=== PATIENT | male | born 1945 | race Caucasian/White ===

== ENCOUNTER 2023-10-18 16:07 | Observation (INO) ==
[2023-10-18] MEDS ORDERED: SODIUM CHLORIDE 0.9% 1,000 ML IV SCH (17:30)
[2023-10-18 17:36] LABS: Basophils # (auto) 0.05 K/uL (0.00-0.20); Basophils % (auto) 0.4 %; Hematocrit (blood only) 46.3 % (42.0-52.0); Hemoglobin 15.3 g/dl (14.0-18.0); Immature Granulocytes # (auto) 0.13 K/uL (0.01-0.20); Immature Granulocytes % (auto) 0.9 %; Lymphocytes # (auto) 1.23 K/uL (1.20-3.40); Mean Corpuscular Hemoglobin 29.1 pg (25.0-34.0); Mean Corpuscular Volume 88.2 fL (80.0-100.0); Mean Platelet Volume 11.1 fL (9.4-12.4); Monocytes % (auto) 10.9 %; Neutrophils % (auto) 78.8 %; Platelet Count 193 K/uL (130-400); RDW Coefficient of Variation 13.5 % (11.5-14.5); RDW Standard Deviation 43.8 fL (36.4-46.3); Red Blood Count 5.25 M/uL (4.70-6.10); White Blood Count 13.71 K/ul (4.8-10.8)
[2023-10-18 17:44] LABS: Albumin Globulin Ratio 1.3 (0.9-2); BUN Creatinine Ratio 15.5 (10-20); Bilirubin,Total 0.8 mg/dl (0.2-1.0); Calcium 9.3 mg/dl (8.6-10.3); Est GFR (African American) 38.8 ml/min; Est GFR (Non-African American) 33.4 ml/min; Globulin 3.1 gm/dl (2.5-4.0); Potassium 4.2 mmol/L (3.5-5.1); Total Protein 7.1 gm/dl (6.0-8.3)
--- NOTE | 2023-10-18 17:49 | Emergency Department Note ---
Impression & Plan Influenza A, Generalized weakness, Ambulatory dysfunction, Non-ST elevation CO (NSTEMI) ED Provider Note HISTORY OF PRESENT ILLNESS: Patient is a 78-year-old male presenting with generalized weakness. Patient lives home alone, but his adult children have been living with him since he was diagnosed with influenza A 72 hours ago. They report that the patient started Tamiflu and is taken 3 pills today. States that he presented to [facility] 3 days ago and was diagnosed with influenza given IV fluids and was feeling better so he was discharged home. However, he has had a significant decline in the last 72 hours. Children reports that the patient has been so weak that he had to lower himself to the ground. Denies striking his head or loss of consciousness. Denies any chest pain or significant shortness of breath. Denies any abdominal pain, nausea or vomiting. He is complaining of some low back pain which has been worse in the last 72 hours. ROS: as above PHYSICAL EXAM: Constitutional: Patient appears in no acute distress. HENT: Head: Normocephalic and atraumatic. Eyes: EOMI, PERRL Mouth/Throat: Mucous membranes moist. Neck: Trachea midline. Neck supple. Cardiovascular: RRR, No murmurs, rubs or gallops. Intact distal pulses. Pulmonary/Chest: No respiratory distress. Breath sounds clear and equal bilaterally. No wheezes or rales. Abdominal: Abdomen soft, no tenderness, rebound or guarding. Musculoskeletal: No edema, tenderness or deformity noted. Skin: Warm and dry. No rash, erythema, pallor or cyanosis Psychiatric: Appropriate mood and affect for situation. Neurological: Alert and keenly responsive. CN II-XII grossly intact, moving all extremities equally and fully. MDM: - Vitals signs showed tachycardia. - History obtained via patient. Patient presents with generalized weakness. Patient lives alone but his adult children have been living with him since he was diagnosed with influenza A 72 hours ago. They report he started Tamiflu and is taken to 3 pills today. She presented to [facility] 3 days ago and was diagnosed with influenza and given fluids and was feeling better so was discharged home. However, family reports in the last 72 hours the patient has had a significant decline. Has been very weak and having difficulties getting around at his house. He reportedly lowered himself to the ground secondary to weakness. Denies striking his head or loss of consciousness. - Chronic conditions affecting care: HTN; HLD - Differential diagnoses include, but are not limited to: viral syndrome; pneumonia; UTI; ACS; intracranial hemorrhage; CVA - Order placed for continuous cardiac monitoring. At this time, monitor showed rate of 95 bpm with normal sinus rhythm, per my interpretation. - External medical records reviewed. EMS run sheet was reviewed. Patient was initially hypotensive on their arrival to 90s over 50s. He was given 500 cc of fluid prehospital - EKG interpreted by myself showed normal sinus rhythm. Rate 99 bpm. QTc 464. No acute ischemic changes. Noted to have an incomplete right bundle branch block. - Laboratory workup interpreted by myself showed slight leukocytosis (WBC 13.71); normal lactate; elevated creatinine (1.87 - unknown baseline); stable electrolytes; elevated troponin (24.2); normal procalcitonin; normal TSH - UA negative for infection - CXR negative for pneumonia, per my interpretation - CT head wo contrast negative for acute pathology - CT lumbar spine negative for fracture. Noted to have nonobstructing stones in right UPJ. - Patient given 1L NS. - Discussion was had with family day carer about patient's case and need for admission - Hospitalist consulted for admission - [facility] ASSESSMENT AND PLAN: Diagnosis: influenza A; generalized weakness; ambulatory dysfunction; NSTEMI Plan: admit Past Med/Surg History Medical History (Updated 10/18/23 @ 20:12 by Honey Foley MD) Hyperlipidemia Hypertension Social History Smoking Status: Never smoker Feels Safe at Home: Yes Allergies Allergies Allergy/AdvReac Type Severity Reaction Status Date / Time No Known Allergies Allergy Verified 10/18/23 18:04 Home Meds Home Medications Medication Instructions Recorded Confirmed amlodipine 2.5 mg tablet 0 mg PO DAILY 10/18/23 10/18/23 benazepril 10 mg tablet 0 mg PO DAILY 10/18/23 10/18/23 oseltamivir 75 mg capsule (Tamiflu) 0 mg PO DIRECTED 10/18/23 10/18/23 pravastatin 10 mg tablet 0 mg PO DAILY 10/18/23 10/18/23 Results & Data (ED) Vital Signs Vital Signs - 24 hr 10/18/23 15:47 10/18/23 16:19 10/18/23 16:20 Temperature 37.1 C Temperature Source Oral Pulse Rate 97 H 97 H 97 H Pulse Rate [Apical] Pulse Rate from SpO2 Sensor Respiratory Rate 15 20 Respiratory Depth Blood Pressure 128/74 Blood Pressure [Right Arm] Blood Pressure Mean 92 Blood Pressure Mean [Right Arm] Pulse Oximetry 94 Oxygen Delivery Method Room Air Sepsis Recent Fever Within 48 Hours No Sepsis New/Unexplained Change in Mental Status No Sepsis Action Taken by Nursing No Action Required 10/18/23 16:22 10/18/23 17:00 10/18/23 17:21 Temperature 37.1 C Temperature Source Oral Pulse Rate 100 H Pulse Rate [Apical] 98 H Pulse Rate from SpO2 Sensor 99 H Respiratory Rate 13 21 Respiratory Depth Normal Blood Pressure Blood Pressure [Right Arm] 128/74 Blood Pressure Mean Blood Pressure Mean [Right Arm] 92 Pulse Oximetry 95 93 93 Oxygen Delivery Method Room Air Room Air Sepsis Recent Fever Within 48 Hours Sepsis New/Unexplained Change in Mental Status Sepsis Action Taken by Nursing 10/18/23 17:35 10/18/23 17:35 10/18/23 18:29 Temperature Temperature Source Pulse Rate 100 H 97 H Pulse Rate [Apical] Pulse Rate from SpO2 Sensor 100 H Respiratory Rate 21 14 Respiratory Depth Blood Pressure 115/69 Blood Pressure [Right Arm] Blood Pressure Mean 79 Blood Pressure Mean [Right Arm] Pulse Oximetry 93 Oxygen Delivery Method Sepsis Recent Fever Within 48 Hours Sepsis New/Unexplained Change in Mental Status Sepsis Action Taken by Nursing 10/18/23 18:32 10/18/23 18:32 10/18/23 19:00 Temperature Temperature Source Pulse Rate Pulse Rate [Apical] Pulse Rate from SpO2 Sensor 91 H Respiratory Rate 19 Respiratory Depth Blood Pressure 102/63 Blood Pressure [Right Arm] Blood Pressure Mean 76 Blood Pressure Mean [Right Arm] Pulse Oximetry 96 Oxygen Delivery Method Sepsis Recent Fever Within 48 Hours Sepsis New/Unexplained Change in Mental Status Sepsis Action Taken by Nursing 10/18/23 19:00 Temperature Temperature Source Pulse Rate Pulse Rate [Apical] Pulse Rate from SpO2 Sensor Respiratory Rate Respiratory Depth Blood Pressure 132/79 Blood Pressure [Right Arm] Blood Pressure Mean 95 Blood Pressure Mean [Right Arm] Pulse Oximetry Oxygen Delivery Method Sepsis Recent Fever Within 48 Hours Sepsis New/Unexplained Change in Mental Status Sepsis Action Taken by Nursing Laboratory Data 10/18/23 16:24 10/18/23 16:24 Lab Results 10/18/23 10/18/23 10/18/23 Range/Units 16:24 17:38 18:20 WBC 13.71 H (4.8-10.8) K/ul RBC 5.25 (4.70-6.10) M/uL Hgb 15.3 (14.0-18.0) g/dl Hct 46.3 (42.0-52.0) % MCV 88.2 (80.0-100.0) fL MCH 29.1 (25.0-34.0) pg MCHC 33.0 (32.0-36.0) g/dL RDW Std Deviation 43.8 (36.4-46.3) fL RDW Coeff of Yanet 13.5 (11.5-14.5) % Plt Count 193 (130-400) K/uL MPV 11.1 (9.4-12.4) fL Immature Gran % (Auto) 0.9 % Neut % (Auto) 78.8 % Lymph % (Auto) 9.0 % Antelope % (Auto) 10.9 % Eos % (Auto) 0.0 % Baso % (Auto) 0.4 % Neut # (Auto) 10.80 H (1.40-6.50) K/uL Lymph # (Auto) 1.23 (1.20-3.40) K/uL Antelope # (Auto) 1.50 H (0.11-0.59) K/uL Eos # (Auto) 0.00 (0.00-0.50) K/uL Baso # (Auto) 0.05 (0.00-0.20) K/uL Immature Gran # (Auto) 0.13 (0.01-0.20) K/uL Sodium 137 (136-145) mmol/L Potassium 4.2 (3.5-5.1) mmol/L Chloride 104 (98-107) mmol/L Carbon Dioxide 23 (21-32) mmol/L Anion Gap 10 (3-11) BUN 29 H (6-23) mg/dl Creatinine 1.87 H (0.6-1.4) mg/dl Est Cr Clr Drug Dosing 31.0 ml/min Est GFR ( Amer) 38.8 ml/min Est GFR (Non-Af Amer) 33.4 ml/min BUN/Creatinine Ratio 15.5 (10-20) Glucose 113 H (70-99(Fasting)) mg/dl Lactate 1.5 (0.4-2.0) mmol/L Calcium 9.3 (8.6-10.3) mg/dl Magnesium 2.0 (1.7-2.4) mg/dl Total Bilirubin 0.8 (0.2-1.0) mg/dl AST 42 H (13-39) U/L ALT 15 (7-52) U/L Alkaline Phosphatase 53 (34-104) U/L Troponin I High Sens 24.2 H (0-20) pg/ml Total Protein 7.1 (6.0-8.3) gm/dl Albumin 4.0 (3.4-5.0) gm/dl Globulin 3.1 (2.5-4.0) gm/dl Albumin/Globulin Ratio 1.3 (0.9-2) Procalcitonin 0.18 (0-0.5) ng/ml TSH 4.193 (0.300-4.500) uIu/ml Urine Color Urine Appearance (Clear) Urine pH (4.5-7.5) Ur Specific Wilcox (1.000-1.030) Urine Protein (Negative) Urine Glucose (UA) (Negative) Urine Ketones (Negative) Urine Blood (Negative) Urine Nitrite (Negative) Urine Bilirubin (Negative) Urine Urobilinogen (Negative) Ur Leukocyte Esterase (Negative) Urine WBC (Auto) (0-5) /hpf Urine RBC (Auto) (0-4) /hpf U Hyaline Cast (Auto) (0-5) /lpf U Epithel Cells (Auto) (0-5) /lpf Urine Bacteria (Auto) (Negative) Ur Renal Epithelial Cell (0-5) /lpf SARS-CoV-2 (PCR) NEGATIVE (Negative) 10/18/23 Range/Units Unknown WBC (4.8-10.8) K/ul RBC (4.70-6.10) M/uL Hgb (14.0-18.0) g/dl Hct (42.0-52.0) % MCV (80.0-100.0) fL MCH (25.0-34.0) pg MCHC (32.0-36.0) g/dL RDW Std Deviation (36.4-46.3) fL RDW Coeff of Yanet (11.5-14.5) % Plt Count (130-400) K/uL MPV (9.4-12.4) fL Immature Gran % (Auto) % Neut % (Auto) % Lymph % (Auto) % Antelope % (Auto) % Eos % (Auto) % Baso % (Auto) % Neut # (Auto) (1.40-6.50) K/uL Lymph # (Auto) (1.20-3.40) K/uL Antelope # (Auto) (0.11-0.59) K/uL Eos # (Auto) (0.00-0.50) K/uL Baso # (Auto) (0.00-0.20) K/uL Immature Gran # (Auto) (0.01-0.20) K/uL Sodium (136-145) mmol/L Potassium (3.5-5.1) mmol/L Chloride (98-107) mmol/L Carbon Dioxide (21-32) mmol/L Anion Gap (3-11) BUN (6-23) mg/dl Creatinine (0.6-1.4) mg/dl Est Cr Clr Drug Dosing ml/min Est GFR ( Amer) ml/min Est GFR (Non-Af Amer) ml/min BUN/Creatinine Ratio (10-20) Glucose (70-99(Fasting)) mg/dl Lactate (0.4-2.0) mmol/L Calcium (8.6-10.3) mg/dl Magnesium (1.7-2.4) mg/dl Total Bilirubin (0.2-1.0) mg/dl AST (13-39) U/L ALT (7-52) U/L Alkaline Phosphatase (34-104) U/L Troponin I High Sens (0-20) pg/ml Total Protein (6.0-8.3) gm/dl Albumin (3.4-5.0) gm/dl Globulin (2.5-4.0) gm/dl Albumin/Globulin Ratio (0.9-2) Procalcitonin (0-0.5) ng/ml TSH (0.300-4.500) uIu/ml Urine Color Yellow Urine Appearance Cloudy A (Clear) Urine pH 5.5 (4.5-7.5) Ur Specific Wilcox 1.018 (1.000-1.030) Urine Protein 1+ H (Negative) Urine Glucose (UA) Negative (Negative) Urine Ketones 1+ H (Negative) Urine Blood 2+ H (Negative) Urine Nitrite Negative (Negative) Urine Bilirubin Negative (Negative) Urine Urobilinogen Negative (Negative) Ur Leukocyte Esterase Negative (Negative) Urine WBC (Auto) 1-5 (0-5) /hpf Urine RBC (Auto) 0-4 (0-4) /hpf U Hyaline Cast (Auto) 1-5 (0-5) /lpf U Epithel Cells (Auto) >30 H (0-5) /lpf Urine Bacteria (Auto) Negative (Negative) Ur Renal Epithelial Cell 5-10 H (0-5) /lpf SARS-CoV-2 (PCR) (Negative) Administered Medications Discontinued Medications Sodium Chloride (Nss) 1,000 mls @ 999 mls/hr IV .[id number] ALFONZO Stop: 10/18/23 18:30 Last Infusion: 10/18/23 18:54 Dose: Infused Documented By: Admin: 10/18/23 17:35 Dose: 999 mls/hr Documented By: [facility] Imaging Data Radiologist's Impression: Chest X-Ray 10/18/23 17:21 XR chest 1V portable HISTORY: weakness COMPARISON: None. FINDINGS: There are low lung volumes. No pneumothorax. No focal lung consolidations to suggest a pneumonia. No evidence for pulmonary edema. The cardiac silhouette is normal in size. No acute fractures identified. IMPRESSION: No acute process. ACT 112: Negative or not required by law. Electronically signed by: Rell Rocha M.D. 10/18/2023 5:[address] 10/18/23 17:[address] DOSE: 1806.65 mGy.cm HISTORY: generalized weakness TECHNIQUE: Multiaxial CT images of the head were performed without the use of intravenous contrast. Automated exposure control was utilized for this study. A dose lowering technique was utilized adhering to the principles of ALARA. Comparison: None. Findings: Mild mucosal thickening within the left maxillary sinus. Opacified left frontal and left sphenoid sinuses. This is likely chronic. The mastoid air cells are clear. Artifact. The calvarium and skull base are intact. Old bilateral basal ganglia infarcts. There is no mass, hematoma, midline shift, or acute infarct. Atrophy and microvascular ischemic changes are noted. Impression: No acute infarct or intracranial hemorrhage. ACT 112: Negative or not required by law. Electronically signed by: Rell Rocha M.D. 10/18/2023 7:[address] 10/18/23 17:[address] DOSE: HISTORY: low back pain s/p fall TECHNIQUE: Multiaxial CT images of the lumbar spine were performed and reformatted in the sagittal and coronal plane without the use of contrast. A dose lowering technique was utilized adhering to the principles of ALARA. COMPARISON: None. FINDINGS: Moderate to severe anterior wedge-shaped compression deformity at L1. This appears to be chronic. No associated retropulsion. No acute fracture or subluxation within the lumbar spine. No significant disc space narrowing. Facet degenerative changes are noted. There are 2 nonobstructing stones within the right renal pelvis/ureteropelvic junction the largest measuring 2.6 cm. There is right-sided nephrolithiasis. The visualized sacrum is intact. There is mild central canal narrowing at L4-L5. IMPRESSION: 1. No acute fractures within the lumbar spine. 2. Chronic compression deformity at L1. 3. There are 2 nonobstructing stones within the right renal pelvis/UPJ the largest measuring 2.6 cm. ACT 112: Negative or not required by law. Electronically signed by: Rell Rocha M.D. 10/18/2023 7:45 PM Discharge Plan Visit Data Chief Complaint: Weakness Stated Complaint: WEAKNESS ED Provider: Honey Foley Discharge Problem: Influenza A, Generalized weakness, Ambulatory dysfunction, Non-ST elevation CO (NSTEMI) Forms Stand Alone Forms: [employer] Prescriptions Prescriptions: No Action amlodipine 2.5 mg Tablet 0 mg PO DAILY Rx Instructions: UNSURE OF STRENGTH, UNABLE TO VERIFY pravastatin 10 mg Tablet 0 mg PO DAILY Rx Instructions: UNSURE OF STRENGTH, UNABLE TO VERIFY oseltamivir [Tamiflu] 75 mg Capsule 0 mg PO DIRECTED Rx Instructions: UNSURE OF STRENGTH, UNABLE TO VERIFY benazepril 10 mg Tablet 0 mg PO DAILY Rx Instructions: UNSURE OF STRENGTH, UNABLE TO VERIFY Referrals Referrals: PCP,NO [Primary Care Provider] -
[2023-10-18 17:50] LABS: Troponin I High Sensitivity 24.2 pg/ml (0-20)
--- NOTE | 2023-10-18 17:52 | XRay Report ---
XR chest 1V portable HISTORY: weakness COMPARISON: None. FINDINGS: There are low lung volumes. No pneumothorax. No focal lung consolidations to suggest a pneu monia. No evidence for pulmonary edema. The cardiac silhouette is normal in size. No acute fractures identified. IMPRESSION: No acute process. ACT 112: Negative or not required by law. Electronically signed by: Rell Rocha M.D. 10/18/2023 5:51 PM
[2023-10-18 18:00] LABS: Thyroid Stimulating Hormone 4.193 uIu/ml (0.300-4.500)
[2023-10-18 18:53] LABS: Appearance Urine Cloudy (Clear); Bacteria Urine Automated Negative (Negative); Bilirubin Urine Negative (Negative); Blood Urine 2+ (Negative); Color Urine Yellow; Epithelial Cell Urine Auto >30 /lpf (0-5); Glucose Urine UA Negative (Negative); Ketones Urine 1+ (Negative); Leukocyte Esterase Urine Negative (Negative); Nitrite Urine Negative (Negative); Protein Urine 1+ (Negative); RBC Urine Automated 0-4 /hpf (0-4); Specific Gravity Urine 1.018 (1.000-1.030); Urobilinogen Urine Negative (Negative); pH Urine 5.5 (4.5-7.5)
--- NOTE | 2023-10-18 19:46 | CT Scan Report ---
HEAD CT NONCONTRAST CT DOSE: 1806.65 mGy.cm HISTORY: generalized weakness TECHNIQUE: Multiaxial CT images of the head were performed without the use of intravenous contrast. A utomated exposure control was utilized for this study. A dose lowering technique was utilized adheri ng to the principles of ALARA. Comparison: None. Findings: Mild mucosal thickening within the left maxillary sinus. Opacified left frontal and left sp henoid sinuses. This is likely chronic. The mastoid air cells are clear. Artifact. The calvarium and skull base are intact. Old bilateral basal ganglia infarcts. There is no mass, hematoma, midline shif t, or acute infarct. Atrophy and microvascular ischemic changes are noted. Impression: No acute infarct or intracranial hemorrhage. ACT 112: Negative or not required by law. Electronically signed by: Rell Rocha M.D. 10/18/2023 7:44 PM
--- NOTE | 2023-10-18 19:46 | CT Scan Report ---
LUMBAR SPINE CT CT DOSE: HISTORY: low back pain s/p fall TECHNIQUE: Multiaxial CT images of the lumbar spine were performed and reformatted in the sagittal an d coronal plane without the use of contrast. A dose lowering technique was utilized adhering to the principles of ALARA. COMPARISON: None. FINDINGS: Moderate to severe anterior wedge-shaped compression deformity at L1. This appears to be ch ronic. No associated retropulsion. No acute fracture or subluxation within the lumbar spine. No signi ficant disc space narrowing. Facet degenerative changes are noted. There are 2 nonobstructing stones within the right renal pelvis/ureteropelvic junction the largest measuring 2.6 cm. There is right-sariah ed nephrolithiasis. The visualized sacrum is intact. There is mild central canal narrowing at L4-L5. IMPRESSION: 1. No acute fractures within the lumbar spine. 2. Chronic compression deformity at L1. 3. There are 2 nonobstructing stones within the right renal pelvis/UPJ the largest measuring 2.6 cm. ACT 112: Negative or not required by law. Electronically signed by: Rell Rocha M.D. 10/18/2023 7:45 PM
--- NOTE | 2023-10-18 20:00 | History & Physical Report ---
Date of Service October 18, 2023 Assessment & Plan (1) Influenza: Plan: Patient developed symptoms of cough, congestion, and runny nose on Tuesday 10/16 He was seen at [facility] and discharged on Tamiflu 75 mg twice daily However, he had an acute decline on 10/18 and was reportedly unable to walk due to generalized weakness; failure of outpatient treatment Continue Tamiflu 75mg BID x 3 additional days, and can be given longer if patient does not improve; can adjust for renal dosing Droplet precautions Fluid resuscitation with LR at 100mL/hr x2 Acetaminophen as needed for fever/pain Zofran as needed for nausea/vomiting PT/OT consulted for generalized weakness A.m. CBC, BMP (2) Elevated troponin: Plan: Troponin 24.2 --> 21.6 Continuous telemetry monitoring (3) Hypertension: Plan: Continue amlodipine Hold benazepril, and resume if patient's creatinine clearance improved (CrCl 31 at time of admission) (4) Hyperlipidemia: Plan: Continue pravastatin Plan Disposition: Obs -admit to [facility] telemetry Full code Regular diet VTE PPx: Heparin 5000u SQ q12h History of Present Illness Chief Complaint: Weakness, influenza Primary Care Provider: NO PCP Royal is a pleasant 78-year-old male with PMH of GERD, HTN, HLD, and aspiration PNA. He presented via EMS for weakness, ambulatory dysfunction, and hypotension in the 90/50 range. He first developed symptoms of cough, runny nose, and congestion on 10/16 and tested positive for influenza A at [facility] that day; discharged on Tamiflu. He then had an acute decline today on 10/18. Patient normally lives alone, but his adult children have been with him since he tested positive for influenza. Patient normally ambulates independently, but has been using a walker the past couple days. He started taking the Tamiflu BID on 10/17, and has taken 3 total doses at time of admission. He took all of his regular medications this morning, and reports no recent changes in medicine. Patient manages all medicines. No at home oxygen use. Patient is a former tobacco cigarette smoker, but quit 40 years ago. He also used to chew tobacco. No recent alcohol use. Vital stable at time of admission. ED course: NSS 1000 mL IV ROS: Patient endorses fatigue, generalized weakness, dizziness, loss of appetite, lower back pain, productive cough (white, clear), congestion, and lower extremity weakness. Patient denies fever, chills, FRANCOIS, sweating, difficulty swallowing, CP, SOB, abdominal pain, N/V/D, dysuria, and burning with urination. No PMHx of OR, CVA, DVT/PE, diabetes, or cancer NKDA PCP - Dr. Moreau ([facility]) Allergies Allergy/AdvReac Type Severity Reaction Status Date / Time No Known Allergies Allergy Verified 10/18/23 18:04 Home Medications Medication Instructions Recorded Confirmed Type amlodipine 2.5 mg tablet 10 mg PO DAILY 10/18/23 10/18/23 History benazepril 10 mg tablet 20 mg PO DAILY 10/18/23 10/18/23 History oseltamivir 75 mg capsule (Tamiflu) 75 mg PO BID 10/18/23 10/18/23 History pravastatin 10 mg tablet 40 mg PO DAILY 10/18/23 10/18/23 History Past Med/Surg History Medical History (Updated 10/18/23 @ 21:13 by Rell Patino PA-C) Hyperlipidemia Hypertension Social History Smoking Status: Former smoker Smoking End Date: 2002; Hx Alcohol Use: No Hx Substance Use: No Preferred Language: Lao Communication Ability: Effective Slabber Light Required: No Beliefs That Will Affect Care: None Current Living Situation: Alone Other Information That Helps Us Care for You: No Feels Safe at Home: Yes Safety Concerns: Feels Safe At This Time Assistive Devices: Hearing Aid - Bilateral and Walker Review of Systems Review of Systems: See HPI above Physical Exam Physical Exam: General: no acute distress; non-toxic appearing; well-nourished; cooperative HEENT: normocephalic, atraumatic; no scleral icterus; tooth decay; PERRLA w/ EOMs intact; dry mucus membrane; vision and hearing grossly intact Neck: supple; no lymphadenopathy; trachea midline Skin: warm, dry without signs of tenting; no cyanosis; no rashes, bruising, lesions, or erythema noted CV: chest wall NTP; RRR; S1/S2 normal; no murmurs/rubs/gallops; pulses intact and symmetric at radial, DP, and PT Lungs: no acute respiratory distress; symmetrical chest wall expansion; mild expiratory wheeze across all lung ames bilaterally ABD: Soft, NTP; BS present; no rebound/guarding; no distention MSK: no tics or fasciculations; no edema noted in the LEs b/l, nonerythematous; full active ROM; decreased strength in LE; 3/5 bilaterally in LEs when lifting at the hip while lying in bed Neuro: A&Ox3; normal mood and affect; fluent speech; no focal deficits; sensation grossly intact Results & Data Results & Data Vital Signs (Past 12 Hours) Vital Signs Temp Pulse Pulse Resp BP BP Pulse Ox 10/18/23 19:00 132/79 10/18/23 19:00 96 10/18/23 18:32 102/63 10/18/23 18:32 19 10/18/23 18:29 97 H 14 10/18/23 17:35 115/69 10/18/23 17:35 100 H 21 93 10/18/23 17:21 93 10/18/23 17:00 100 H 21 93 10/18/23 16:22 37.1 C 98 H 13 128/74 95 10/18/23 16:20 97 H 10/18/23 16:19 97 H 20 10/18/23 15:47 37.1 C 97 H 15 128/74 94 O2 Del Method 10/18/23 19:00 10/18/23 19:00 10/18/23 18:32 10/18/23 18:32 10/18/23 18:29 10/18/23 17:35 10/18/23 17:35 10/18/23 17:21 Room Air 10/18/23 17:00 10/18/23 16:22 Room Air 10/18/23 16:20 10/18/23 16:19 10/18/23 15:47 Room Air Laboratory Results Abnormal lab results 10/18/23 10/18/23 Range/Units 16:24 Unknown WBC 13.71 H (4.8-10.8) K/ul Neut # (Auto) 10.80 H (1.40-6.50) K/uL Simpson # (Auto) 1.50 H (0.11-0.59) K/uL BUN 29 H (6-23) mg/dl Creatinine 1.87 H (0.6-1.4) mg/dl Glucose 113 H (70-99(Fasting)) mg/dl AST 42 H (13-39) U/L Troponin I High Sens 24.2 H (0-20) pg/ml Urine Appearance Cloudy A (Clear) Urine Protein 1+ H (Negative) Urine Ketones 1+ H (Negative) Urine Blood 2+ H (Negative) U Epithel Cells (Auto) >30 H (0-5) /lpf Ur Renal Epithelial Cell 5-10 H (0-5) /lpf Diagnostic Findings Chest X-Ray 10/18/23 17:21 XR chest 1V portable HISTORY: weakness COMPARISON: None. FINDINGS: There are low lung volumes. No pneumothorax. No focal lung consolidations to suggest a pneumonia. No evidence for pulmonary edema. The cardiac silhouette is normal in size. No acute fractures identified. IMPRESSION: No acute process. ACT 112: Negative or not required by law. Electronically signed by: Rell Rocha M.D. 10/18/2023 5:[address] 10/18/23 17:[address] DOSE: 1806.65 mGy.cm HISTORY: generalized weakness TECHNIQUE: Multiaxial CT images of the head were performed without the use of intravenous contrast. Automated exposure control was utilized for this study. A dose lowering technique was utilized adhering to the principles of ALARA. Comparison: None. Findings: Mild mucosal thickening within the left maxillary sinus. Opacified left frontal and left sphenoid sinuses. This is likely chronic. The mastoid air cells are clear. Artifact. The calvarium and skull base are intact. Old bilateral basal ganglia infarcts. There is no mass, hematoma, midline shift, or acute infarct. Atrophy and microvascular ischemic changes are noted. Impression: No acute infarct or intracranial hemorrhage. ACT 112: Negative or not required by law. Electronically signed by: Rell Rocha M.D. 10/18/2023 7:[address] 10/18/23 17:[address] DOSE: HISTORY: low back pain s/p fall TECHNIQUE: Multiaxial CT images of the lumbar spine were performed and reformatted in the sagittal and coronal plane without the use of contrast. A dose lowering technique was utilized adhering to the principles of ALARA. COMPARISON: None. FINDINGS: Moderate to severe anterior wedge-shaped compression deformity at L1. This appears to be chronic. No associated retropulsion. No acute fracture or subluxation within the lumbar spine. No significant disc space narrowing. Facet degenerative changes are noted. There are 2 nonobstructing stones within the right renal pelvis/ureteropelvic junction the largest measuring 2.6 cm. There is right-sided nephrolithiasis. The visualized sacrum is intact. There is mild central canal narrowing at L4-L5. IMPRESSION: 1. No acute fractures within the lumbar spine. 2. Chronic compression deformity at L1. 3. There are 2 nonobstructing stones within the right renal pelvis/UPJ the largest measuring 2.6 cm. ACT 112: Negative or not required by law. Electronically signed by: Rell Rocha M.D. 10/18/2023 7:45 PM Code Status & VTE Plan Code Status Full code VTE Prophylaxis Plan VTE Prophylaxis will be ordered: Yes Supervising Physician Co-Signing Physician Notes Attending addendum: I have physically seen this patient, have supervised the GALLO's activities, and agree with the H&P unless as otherwise noted. Assessment and Plan: Influenza A- Symptoms since 10/16, he was seen at [facility] ED and discharged on Tamiflu 75 mg twice daily Continue Tamiflu additional 3 days Droplet precautions LR at 100 mL/h x 2 more liters Acetaminophen 650 mg by mouth every 6 hours as needed for mild pain or fever Zofran 4 mg IV every 6 hours as needed Consult PT/OT for generalized weakness Elevated troponin/Hypertension- Troponin 24.2, with follow-up 21.6 Likely supply demand mismatch Continue amlodipine with hold parameters Hold benazepril Hyperlipidemia- Continue pravastatin PG Care Time/CCT Total # of Minutes Spent Total Time Spent with Patient: Total time spent is greater than 50% in coordination of care (as documented) at patient's floor/unit and/or counseling patient: [place] [address] INT INP/OBS CARE 1/40MIN Patient Type New Medical Decision Making Low Complexity Diagnoses Influenza J11.1 Elevated troponin R79.89 Hypertension I10 Hyperlipidemia E78.5
[2023-10-18] MEDS ORDERED: OSELTAMIVIR PHOSPHATE 75 MG CAP PO STA (20:32)
[2023-10-18 20:40] LABS: Influenza B virus by PCR Negative (Neg); RSV by PCR Negative (Neg); SARS CoV2 RNA(COVID-19) Ceph NEGATIVE (Negative)
[2023-10-18 20:45] LABS: Influenza A virus by PCR Positive (Neg)
[2023-10-18] MEDS: LACTATED RINGER'S 1,000 ML IV SCH (21:41)
[2023-10-18] MEDS ORDERED: ACETAMINOPHEN 325 MG TAB PO PRN (22:22)
[2023-10-18] MEDS ORDERED: ONDANSETRON INJ 2 MG/ML 2 ML VIAL IV PRN (22:22)
[2023-10-18] MEDS: HEPARIN SOD 5,000 UNIT/0.5 ML VIAL SQ SCH (22:47)
--- NOTE | 2023-10-19 06:47 | Electrocardiogram Report ---
Test Reason : Blood Pressure : / mmHG Vent. Rate : 099 BPM Atrial Rate : 099 BPM P-R Int : 172 ms QRS Dur : 110 ms QT Int : 362 ms P-R-T Axes : 041 150 015 degrees QTc Int : 464 ms Normal sinus rhythm Right axis deviation Incomplete right bundle branch block Possible Right ventricular hypertrophy Septal infarct , age undetermined Abnormal ECG No previous ECGs available Confirmed by Allan Tobin ([id number]) on 10/19/2023 6:46:54 AM Referred By: REFERRED SELF Confirmed By:Allan Tobin
[2023-10-19 07:19] LABS: Basophils # (auto) 0.03 K/uL (0.00-0.20); Basophils % (auto) 0.4 %; Eosinophils # (auto) 0.01 K/uL (0.00-0.50); Eosinophils % (auto) 0.1 %; Hematocrit (blood only) 43.5 % (42.0-52.0); Hemoglobin 14.3 g/dl (14.0-18.0); Immature Granulocytes # (auto) 0.05 K/uL (0.01-0.20); Immature Granulocytes % (auto) 0.6 %; Lymphocytes # (auto) 1.76 K/uL (1.20-3.40); Lymphocytes % (auto) 21.4 %; Mean Corpuscular Hemoglobin 28.5 pg (25.0-34.0); Mean Corpuscular Hgb Conc 32.9 g/dL (32.0-36.0); Mean Corpuscular Volume 86.8 fL (80.0-100.0); Monocytes # (auto) 0.83 K/uL (0.11-0.59); Monocytes % (auto) 10.1 %; Neutrophils # (auto) 5.54 K/uL (1.40-6.50); Neutrophils % (auto) 67.4 %; Platelet Count 145 K/uL (130-400); RDW Coefficient of Variation 13.6 % (11.5-14.5); RDW Standard Deviation 43.4 fL (36.4-46.3); Red Blood Count 5.01 M/uL (4.70-6.10); White Blood Count 8.22 K/ul (4.8-10.8)
[2023-10-19] MEDS: LACTATED RINGER'S 1,000 ML IV SCH (07:19)
[2023-10-19] MEDS: HEPARIN SOD 5,000 UNIT/0.5 ML VIAL SQ SCH ×2 (07:19→20:09)
[2023-10-19] MEDS: OSELTAMIVIR PHOSPHATE SUSP 30 MG/5 ML UDP PO SCH ×2 (07:19→20:09)
[2023-10-19] MEDS: amLODIPine BESYLATE 5 MG TAB PO SCH (07:19)
[2023-10-19] MEDS: PRAVASTATIN SOD 40 MG TAB PO SCH (07:20)
[2023-10-19 07:35] LABS: BUN Creatinine Ratio 18.3 (10-20); Calcium 8.8 mg/dl (8.6-10.3); Creatinine Clr Calc Pharmacy 48.3 ml/min; Est GFR (African American) 66.3 ml/min; Est GFR (Non-African American) 57.2 ml/min; Potassium 3.7 mmol/L (3.5-5.1)
--- NOTE | 2023-10-19 13:00 | Hospitalist Progress Note ---
Date of Service October 19, 2023 Assessment & Plan (1) Influenza: Plan: Influenza a recently diagnosed. He remains on Tamiflu. Continue supportive care. Original diagnosis was October 16 (2) Elevated troponin: Plan: Probably due to supply/demand mismatch. No trending. No chest pain. No acute EKG changes. (3) Hypertension: Plan: Stable. Continue amlodipine. Benazepril was held on admission due to acute kidney injury and will be restarted tomorrow, October 20 (4) Hyperlipidemia: Plan: Stable. Continue pravastatin Plan To be determined. Awaiting OT and PT assessments before disposition can be determined Admission and Anticipated Discharge Date Admission Date: October 18, 2023 Subjective Alert and oriented. Feeling much better. Awaiting OT and PT evaluations. Family would like for him to remain hospitalized until it is determined whether or not it is safe for him to go home because he lives alone. Benazepril will be restarted tomorrow, October 20. Creatinine improved to 1.2. No evidence of acute coronary syndrome. Troponin level is not trending and repeat EKG reveals no significant change from baseline. Review of Systems 2 Review of Systems: Constitutional-no fever or chills ENT-no blurred vision, no double vision, no epistaxis, no sore throat Respiratory-no cough, no wheezing, no shortness of breath Cardiac-no palpitations, no chest pain, no syncope GI-no nausea, vomiting, diarrhea, melena, hematochezia -no urinary retention, no urinary incontinence, no dysuria, no hematuria Musculoskeletal-no joint pain, no muscle tenderness Skin-no bruising, no rashes, no pruritus Neuro-generalized weakness has improved considerably since admission Psych-no depression, no anxiety Physical Exam 2 Physical Exam: General-alert and oriented x3, no fevers, no chills HEENT-head atraumatic and normocephalic, pupils equal and reactive to light, extraocular muscles intact Neck-no lymphadenopathy or thyromegaly, trachea midline Chest-clear to auscultation percussion. No rales wheezing or rhonchi Cardiac-regular rate and rhythm, normal S1 and S2 Abdomen-normal bowel sounds, nontender, no hepatosplenomegaly Extremities-no cyanosis, clubbing, or edema Neuro-cranial nerves II through XII intact, motor and sensory function within normal limits, strength symmetrical, no focal deficits Psych-normal affect, normal mood Results & Data Results & Data Vital Signs (Past 12 Hours) Vital Signs Temp Pulse Pulse Resp BP Pulse Ox O2 Del Method 10/19/23 12:10 36.7 C 76 18 116/81 91 Room Air 10/19/23 08:00 86 10/19/23 08:00 Room Air 10/19/23 07:20 36.3 C L 85 19 135/73 93 Room Air Laboratory Results 10/19/23 06:51 10/19/23 06:51 PG Care Time/CCT Total # of Minutes Spent Total Time Spent with Patient: Total time spent is greater than 50% in coordination of care (as documented) at patient's floor/unit and/or counseling patient: Coding Level of Care Code 36502 SUB INP/OBS CARE 3/50MIN Diagnoses Influenza J11.1 Elevated troponin R79.89 Hypertension I10 Hyperlipidemia E78.5
[2023-10-20 07:02] LABS: Basophils # (auto) 0.03 K/uL (0.00-0.20); Basophils % (auto) 0.4 %; Eosinophils # (auto) 0.05 K/uL (0.00-0.50); Eosinophils % (auto) 0.6 %; Hematocrit (blood only) 41.7 % (42.0-52.0); Hemoglobin 14.1 g/dl (14.0-18.0); Immature Granulocytes # (auto) 0.03 K/uL (0.01-0.20); Immature Granulocytes % (auto) 0.4 %; Lymphocytes # (auto) 2.19 K/uL (1.20-3.40); Lymphocytes % (auto) 27.7 %; Mean Corpuscular Hemoglobin 28.8 pg (25.0-34.0); Mean Corpuscular Hgb Conc 33.8 g/dL (32.0-36.0); Mean Corpuscular Volume 85.3 fL (80.0-100.0); Mean Platelet Volume 11.1 fL (9.4-12.4); Monocytes # (auto) 0.81 K/uL (0.11-0.59); Monocytes % (auto) 10.2 %; Neutrophils % (auto) 60.7 %; Platelet Count 145 K/uL (130-400); RDW Coefficient of Variation 13.2 % (11.5-14.5); RDW Standard Deviation 41.4 fL (36.4-46.3); Red Blood Count 4.89 M/uL (4.70-6.10); White Blood Count 7.91 K/ul (4.8-10.8)
[2023-10-20 07:22] LABS: BUN Creatinine Ratio 15.4 (10-20); Creatinine Clr Calc Pharmacy 55.7 ml/min; Est GFR (African American) 78.8 ml/min; Potassium 3.9 mmol/L (3.5-5.1)
[2023-10-20] MEDS: amLODIPine BESYLATE 5 MG TAB PO SCH (08:32)
[2023-10-20] MEDS: HEPARIN SOD 5,000 UNIT/0.5 ML VIAL SQ SCH ×2 (08:35→20:28)
[2023-10-20] MEDS: PRAVASTATIN SOD 40 MG TAB PO SCH (08:36)
[2023-10-20] MEDS: OSELTAMIVIR PHOSPHATE SUSP 30 MG/5 ML UDP PO SCH ×2 (08:41→20:28)
--- NOTE | 2023-10-20 10:13 | Electrocardiogram Report ---
Test Reason : Blood Pressure : / mmHG Vent. Rate : 083 BPM Atrial Rate : 083 BPM P-R Int : 162 ms QRS Dur : 122 ms QT Int : 394 ms P-R-T Axes : 063 127 027 degrees QTc Int : 462 ms Normal sinus rhythm Right bundle branch block Abnormal ECG When compared with ECG of 18-OCT-2023 16:20, Right bundle branch block has replaced Incomplete right bundle branch block Criteria for Septal infarct are no longer Present Confirmed by Joseph Be ([id number]) on 10/20/2023 10:12:29 AM Referred By: REFERRED SELF Confirmed By:Chao Be
--- NOTE | 2023-10-20 13:25 | XRay Report ---
RIGHT KNEE 3 VIEWS CLINICAL HISTORY: Fall with right knee injury. FINDINGS: AP, crosstable lateral, and sunrise views of the right knee are obtained. No prior studies are available for comparison at the time of dictation. The skeletal structures are osteopenic. No fra cture is seen. There is mild tricompartmental degenerative joint space narrowing. A joint effusion is observed. There are patellar enthesophytes. Chondrocalcinosis is noted in the medial and lateral com partments. Prepatellar soft tissue swelling is observed. There is mild atherosclerotic calcification of the popliteal artery. IMPRESSION: 1. Joint effusion with no acute fracture identified. 2. Osteopenia with degenerative change and chondrocalcinosis as above. Electronically signed by: Eldon Casillas M.D. 10/20/2023 1:24 PM
--- NOTE | 2023-10-20 14:55 | Hospitalist Progress Note ---
Date of Service October 20, 2023 Assessment & Plan (1) Influenza: Plan: Influenza A recently diagnosed. He remains on Tamiflu through October 21. Continue supportive care. Original diagnosis was October 16 (2) Elevated troponin: Plan: Probably due to supply/demand mismatch. No trending. No chest pain. No acute EKG changes. (3) Right knee pain: Plan: Developed after recent fall at home. X-ray negative for fracture. He does have a joint effusion. Parenteral steroid therapy started. If pain persists will consult orthopedics (4) Hypertension: Plan: Stable. Continue amlodipine. Benazepril was held on admission. It is nonformulary and will not be restarted at this time. (5) Hyperlipidemia: Plan: Stable. Continue pravastatin Plan Awaiting OT and PT assessments before disposition can be determined Admission and Anticipated Discharge Date Admission Date: October 18, 2023 Subjective Alert and oriented. He is complaining of right knee pain which developed after he fell recently. X-ray negative for fracture. He does have a joint effusion. Parenteral steroid therapy ordered. If pain persists then orthopedic consultation will be pursued. Blood pressure remains acceptable off benazepril. Creatinine normalized to 1.0. He will finish Tamiflu tomorrow, October 21. OT and PT assessments pending to determine disposition at discharge Review of Systems 2 Review of Systems: Constitutional-no fever or chills ENT-no blurred vision, no double vision, no epistaxis, no sore throat Respiratory-no cough, no wheezing, no shortness of breath Cardiac-no palpitations, no chest pain, no syncope GI-no nausea, vomiting, diarrhea, melena, hematochezia -no urinary retention, no urinary incontinence, no dysuria, no hematuria Musculoskeletal-right knee discomfort. No muscle tenderness Skin-no bruising, no rashes, no pruritus Neuro-generalized weakness has improved considerably since admission Psych-no depression, no anxiety Physical Exam 2 Physical Exam: General-alert and oriented x3, no fevers, no chills HEENT-head atraumatic and normocephalic, pupils equal and reactive to light, extraocular muscles intact Neck-no lymphadenopathy or thyromegaly, trachea midline Chest-clear to auscultation percussion. No rales wheezing or rhonchi Cardiac-regular rate and rhythm, normal S1 and S2 Abdomen-normal bowel sounds, nontender, no hepatosplenomegaly Extremities-no cyanosis, clubbing, or edema. No appreciable prepatellar fluid of the right knee Neuro-cranial nerves II through XII intact, motor and sensory function within normal limits, strength symmetrical, no focal deficits Psych-normal affect, normal mood Results & Data Results & Data Vital Signs (Past 12 Hours) Vital Signs Temp Pulse Resp BP Pulse Ox O2 Del Method 10/20/23 10:49 37.0 C 86 18 137/76 94 Room Air 10/20/23 08:00 Room Air 10/20/23 07:09 37.1 C 80 19 115/68 94 Room Air 10/20/23 03:00 36.6 C 84 20 109/64 96 Room Air Laboratory Results 10/20/23 06:31 10/20/23 06:31 PG Care Time/CCT Total # of Minutes Spent Total Time Spent with Patient: Total time spent is greater than 50% in coordination of care (as documented) at patient's floor/unit and/or counseling patient: Coding Level of Care Code 70405 SUB INP/OBS CARE 3/50MIN Diagnoses Influenza J11.1 Elevated troponin R79.89 Right knee pain M25.561 Hypertension I10 Hyperlipidemia E78.5
[2023-10-20] MEDS: methylPREDNISolone 40 MG in SYRINGE 0 ML IV SCH ×2 (16:05→22:49)
[2023-10-20] MEDS ORDERED: guaiFENesin SUGAR FREE 100 MG/5 ML UDC PO PRN (16:52)
[2023-10-21] MEDS: methylPREDNISolone 40 MG in SYRINGE 0 ML IV SCH ×3 (06:03→23:30)
[2023-10-21] MEDS: HEPARIN SOD 5,000 UNIT/0.5 ML VIAL SQ SCH ×2 (07:54→20:02)
[2023-10-21] MEDS: PRAVASTATIN SOD 40 MG TAB PO SCH (07:55)
[2023-10-21] MEDS: OSELTAMIVIR PHOSPHATE SUSP 30 MG/5 ML UDP PO SCH (07:55)
[2023-10-21] MEDS: amLODIPine BESYLATE 5 MG TAB PO SCH (07:55)
--- NOTE | 2023-10-21 16:06 | Hospitalist Progress Note ---
Date of Service October 21, 2023 Assessment & Plan (1) Influenza: Plan: Influenza A recently diagnosed. Now asymptomatic. He has completed his 5-day course of Tamiflu. Continue supportive care. Original diagnosis was October 16 (2) Elevated troponin: Plan: Probably due to supply/demand mismatch. No trending. No chest pain. No acute EKG changes. (3) Right knee pain: Plan: Developed after recent fall at home. X-ray negative for fracture. He does have a joint effusion. Parenteral steroid therapy has helped quite a bit. It does not appear orthopedic consultation will be necessary (4) Hypertension: Plan: Stable. Continue amlodipine. Benazepril was held on admission. It is nonformulary and will not be restarted at this time. (5) Hyperlipidemia: Plan: Stable. Continue pravastatin Plan Awaiting insurance determination regarding IPR placement. He states if IPR is denied, he will simply go home with home health services. Admission and Anticipated Discharge Date Admission Date: October 20, 2023 Subjective Alert and oriented. No complaints. Awaiting insurance determination regarding IPR placement. If this is denied, he states he will simply go home. He has completed his 5-day course of Tamiflu. Blood pressure remains acceptable off HARSHIL inhibitor for now. Right knee feels better all with parenteral steroid therapy. Review of Systems 2 Review of Systems: Constitutional-no fever or chills ENT-no blurred vision, no double vision, no epistaxis, no sore throat Respiratory-no cough, no wheezing, no shortness of breath Cardiac-no palpitations, no chest pain, no syncope GI-no nausea, vomiting, diarrhea, melena, hematochezia -no urinary retention, no urinary incontinence, no dysuria, no hematuria Musculoskeletal-right knee discomfort has improved. No muscle tenderness Skin-no bruising, no rashes, no pruritus Neuro-generalized weakness has improved considerably since admission Psych-no depression, no anxiety Physical Exam 2 Physical Exam: General-alert and oriented x3, no fevers, no chills HEENT-head atraumatic and normocephalic, pupils equal and reactive to light, extraocular muscles intact Neck-no lymphadenopathy or thyromegaly, trachea midline Chest-clear to auscultation percussion. No rales wheezing or rhonchi Cardiac-regular rate and rhythm, normal S1 and S2 Abdomen-normal bowel sounds, nontender, no hepatosplenomegaly Extremities-no cyanosis, clubbing, or edema. No appreciable prepatellar fluid of the right knee. Less discomfort and better range of motion Neuro-cranial nerves II through XII intact, motor and sensory function within normal limits, strength symmetrical, no focal deficits Psych-normal affect, normal mood Results & Data Results & Data Vital Signs (Past 12 Hours) Vital Signs Temp Pulse Pulse Resp BP Pulse Ox O2 Del Method 10/21/23 14:54 86 10/21/23 08:52 87 10/21/23 07:42 Room Air 10/21/23 07:32 36.4 C L 85 18 119/84 92 Room Air Laboratory Results 10/20/23 06:31 10/20/23 06:31 PG Care Time/CCT Total # of Minutes Spent Total Time Spent with Patient: Total time spent is greater than 50% in coordination of care (as documented) at patient's floor/unit and/or counseling patient: Coding Level of Care Code 08970 SUB INP/OBS CARE 3/50MIN Diagnoses Influenza J11.1 Elevated troponin R79.89 Right knee pain M25.561 Hypertension I10 Hyperlipidemia E78.5
[2023-10-22] MEDS: methylPREDNISolone 40 MG in SYRINGE 0 ML IV SCH (06:17)
[2023-10-22] MEDS: PRAVASTATIN SOD 40 MG TAB PO SCH (08:43)
[2023-10-22] MEDS: amLODIPine BESYLATE 5 MG TAB PO SCH (08:43)
[2023-10-22] MEDS: HEPARIN SOD 5,000 UNIT/0.5 ML VIAL SQ SCH (08:44)
--- NOTE | 2023-10-22 13:56 | Hospitalist Progress Note ---
Date of Service October 22, 2023 Assessment & Plan (1) Influenza: Plan: Influenza A recently diagnosed. Now asymptomatic. He has completed his 5-day course of Tamiflu. Continue supportive care. Original diagnosis was October 16 (2) Elevated troponin: Plan: Probably due to supply/demand mismatch. No trending. No chest pain. No acute EKG changes. (3) Right knee pain: Plan: Developed after recent fall at home. X-ray negative for fracture. He does have a joint effusion. Discomfort resolved with parenteral steroid therapy. Solu- Medrol discontinued today, October 22. (4) Hypertension: Plan: Stable. Continue amlodipine. Benazepril was held on admission. It is nonformulary and will not be restarted at this time. (5) Hyperlipidemia: Plan: Stable. Continue pravastatin Plan If [facility] is denied by insurance, he will go home with home health services. Admission and Anticipated Discharge Date Admission Date: October 20, 2023 Subjective Alert and oriented. No new problems. Apparently he did better with physical therapy. Awaiting insurance decision as to whether he can go to [facility] or simply should go home with home health. Right knee pain has resolved. Solu-Medrol has been discontinued. Blood pressure acceptable with benazepril on hold Review of Systems 2 Review of Systems: Constitutional-no fever or chills ENT-no blurred vision, no double vision, no epistaxis, no sore throat Respiratory-no cough, no wheezing, no shortness of breath Cardiac-no palpitations, no chest pain, no syncope GI-no nausea, vomiting, diarrhea, melena, hematochezia -no urinary retention, no urinary incontinence, no dysuria, no hematuria Musculoskeletal-right knee discomfort has improved. No muscle tenderness Skin-no bruising, no rashes, no pruritus Neuro-generalized weakness has improved considerably since admission Psych-no depression, no anxiety Physical Exam 2 Physical Exam: General-alert and oriented x3, no fevers, no chills HEENT-head atraumatic and normocephalic, pupils equal and reactive to light, extraocular muscles intact Neck-no lymphadenopathy or thyromegaly, trachea midline Chest-clear to auscultation percussion. No rales wheezing or rhonchi Cardiac-regular rate and rhythm, normal S1 and S2 Abdomen-normal bowel sounds, nontender, no hepatosplenomegaly Extremities-no cyanosis, clubbing, or edema. No appreciable prepatellar fluid of the right knee. Less discomfort and better range of motion Neuro-cranial nerves II through XII intact, motor and sensory function within normal limits, strength symmetrical, no focal deficits Psych-normal affect, normal mood Results & Data Results & Data Vital Signs (Past 12 Hours) Vital Signs Temp Pulse Pulse Resp BP Pulse Ox O2 Del Method 10/22/23 13:12 71 10/22/23 08:00 Room Air 10/22/23 07:29 36.6 C 76 18 118/73 92 Room Air 10/22/23 03:00 36.6 C 72 20 110/62 97 Room Air Laboratory Results 10/20/23 06:31 10/20/23 06:31 PG Care Time/CCT Total # of Minutes Spent Total Time Spent with Patient: Total time spent is greater than 50% in coordination of care (as documented) at patient's floor/unit and/or counseling patient: Coding Level of Care Code 84734 SUB INP/OBS CARE 2/35MIN Diagnoses Influenza J11.1 Elevated troponin R79.89 Right knee pain M25.561 Hypertension I10 Hyperlipidemia E78.5
--- NOTE | 2023-10-22 15:31 | Discharge Summary ---
Date of Service October 22, 2023 Admission HPI Per Admitting Provider Royal is a pleasant 78-year-old male with PMH of GERD, HTN, HLD, and aspiration PNA. He presented via EMS for weakness, ambulatory dysfunction, and hypotension in the 90/50 range. He first developed symptoms of cough, runny nose, and congestion on 10/16 and tested positive for influenza A at [facility] that day; discharged on Tamiflu. He then had an acute decline today on 10/18. Patient normally lives alone, but his adult children have been with him since he tested positive for influenza. Patient normally ambulates independently, but has been using a walker the past couple days. He started taking the Tamiflu BID on 10/17, and has taken 3 total doses at time of admission. He took all of his regular medications this morning, and reports no recent changes in medicine. Patient manages all medicines. No at home oxygen use. Patient is a former tobacco cigarette smoker, but quit 40 years ago. He also used to chew tobacco. No recent alcohol use. Vital stable at time of admission. ED course: NSS 1000 mL IV ROS: Patient endorses fatigue, generalized weakness, dizziness, loss of appetite, lower back pain, productive cough (white, clear), congestion, and lower extremity weakness. Patient denies fever, chills, FRANCOIS, sweating, difficulty swallowing, CP, SOB, abdominal pain, N/V/D, dysuria, and burning with urination. No PMHx of LA, CVA, DVT/PE, diabetes, or cancer NKDA PCP - Dr. Moreau ([facility]) Principal Diagnosis Influenza a, acute kidney injury, generalized weakness, transient hypotension, elevated troponin without acute coronary syndrome Discharge Exam General-alert and oriented x3, no fevers, no chills HEENT-head atraumatic and normocephalic, pupils equal and reactive to light, extraocular muscles intact Neck-no lymphadenopathy or thyromegaly, trachea midline Chest-clear to auscultation percussion. No rales wheezing or rhonchi Cardiac-regular rate and rhythm, normal S1 and S2 Abdomen-normal bowel sounds, nontender, no hepatosplenomegaly Extremities-no cyanosis, clubbing, or edema. No appreciable prepatellar fluid of the right knee. Less discomfort and better range of motion Neuro-cranial nerves II through XII intact, motor and sensory function within normal limits, strength symmetrical, no focal deficits Psych-normal affect, normal mood Discharge Data Allergies Allergy/AdvReac Type Severity Reaction Status Date / Time No Known Allergies Allergy Verified 10/18/23 18:04 Consultations 10/18/23 20:05 ED Decision to Admit Stat Ordered Studies 10/18/23 17:21 CT head/brain wo con Stat CT lumbar spine wo con Stat Hospital Course (1) Influenza: Influenza A recently diagnosed. Now asymptomatic. He has completed his 5-day course of Tamiflu. Continue supportive care. Original diagnosis was October 16 (2) Elevated troponin: Probably due to supply/demand mismatch. No trending. No chest pain. No acute EKG changes. (3) Right knee pain: Developed after recent fall at home. X-ray negative for fracture. He does have a joint effusion. Discomfort resolved with parenteral steroid therapy. Solu- Medrol discontinued today, October 22. (4) Hypertension: Stable. Continue amlodipine. Benazepril was held on admission. It is nonformulary and will not be restarted at this time. (5) Hyperlipidemia: Stable. Continue pravastatin Plan If [facility] is denied by insurance, he will go home with home health services. Total Time Total Time Spent Total Time Spent (In Minutes): 45 minutes Discharge Plan Discharge Items Patient Disposition: Home - Self-Care Reason For Visit: INFLUENZA, WEAKNESS Discharge Diagnosis: Influenza A, acute kidney injury, transient hypotension, elevated troponin without acute coronary syndrome Activity: Resume your previous activity Non-emergency contact: Primary Care Provider Call non-emergency contact if: you have any medication questions and your symptoms worsen Follow-up/Referrals: PCP,NO [Primary Care Provider] - Diet: Regular Addtl Attending Provider Instructions: All medications remain the same Pending Studies at Discharge: No Stand-Alone Forms: [employer], Smoking Cessation Medications and DC Order Prescriptions: Continued amlodipine 2.5 mg Tablet 10 mg PO DAILY pravastatin 10 mg Tablet 40 mg PO DAILY benazepril 10 mg Tablet 20 mg PO DAILY Discontinued oseltamivir [Tamiflu] 75 mg Capsule 75 mg PO BID Discharge Orders: Discharge Order (Routine); Ordered 10/22/23 Ordered By: Royal Sprague Admission Data Admit Date/Time: 10/20/23 12:05 Attending Provider: Royal Sprague Admit Provider: Anurag Mckeon Primary Care Provider: PCP,NO Other Providers: Anurag Mckeon; [facility] Coding Level of Care Code 49156 INP/OBS DISCH >30 MIN Diagnoses Influenza J11.1 Elevated troponin R79.89 Right knee pain M25.561 Hypertension I10 Hyperlipidemia E78.5
== END 2023-10-22 18:05 | disposition home health service (06) | DRG 194 ==
LOC: 2E 16:07 → ED 16:07 → SUATTDRO 20:45 → 2E 21:49

== ENCOUNTER 2025-02-02 05:08 | Inpatient (IN) ==
--- NOTE | 2025-02-02 05:28 | Emergency Department Note ---
Impression & Plan Sepsis, Constipation, Vomiting admit to the [facility] ED Provider Note NAME: GRACE JEAN-BAPTISTE AGE: 79 SEX: Male INFORMANT: Patient ED PROVIDER(S): Svitlana Payan DO CHIEF COMPLAINT: Vomiting PLAN: Disposition: admit to the [facility] MEDICAL DECISION MAKING: This is an 79-year-old male patient who presents to the emergency department from [facility] with vomiting. patient had been admitted there approximately 9 days ago with generalized weakness, ambulatory dysfunction and a history of orthostatic hypotension. Patient had been having difficulties with bowel movements over the past couple of days and had been taking laxatives but now developed dark-colored vomitus that smelled like stool. Laboratory studies revealed a white blood cell count of through 32.1. H&H were elevated consistent with hemoconcentration. BUN was 24 and creatinine of 1.26. Glucose was elevated at 183. Troponin was 10.5. Lactate was 2.1 and procalcitonin was 0.52. a septic protocol was performed. The patient was bolused with 30 mL/kg of normal saline solution and given 2 g of IV cefepime. The source of infection was not clear. Patient has not had a substantial bowel movement in the past [address] scan, the patient has significant fecal load within the rectum. The patient appears to have vomited substance that looks like stool. Nursing staff have attempted to perform a soapsuds enema and had some results. Patient has had previous ureteral stones with urological procedures performed greater than 20 years ago according to the patient. This current CT scan shows ureteral stones but the patient denies any current or recent pain consistent with obstructive uropathy pain. I discussed the case with the [facility] and they will evaluate for further inpatient care. Care/management discussed with: manager of employee relations and [facility] Triage Nursing notes: reviewed and agree with them. Vital Signs: reviewed and unremarkable Prior/ Outside/ External records reviewed: I reviewed the records from [facility] that accompanied the patient here to the ER. Differential Diagnosis: Bowel obstruction, feculent vomitus, sepsis, dehydration Diagnostics, independently interpreted by me: ECG: sinus tachycardia at a rate of [address] segment elevation or signs of ischemia. QTc was 455 ms. Cardiac Monitoring: sinus tachycardia at 117 Imaging studies: chest x-ray: As per [facility] CT scan of the abdomen/pelvis: As per [facility] HPI: 79 year old Male arrives for evaluation of vomiting. the patient presents from [facility] with vomiting. patient had been admitted there approximately 9 days ago with generalized weakness, ambulatory dysfunction and a history of orthostatic hypotension. Patient had been having difficulties with bowel movements over the past couple of days and had been taking laxatives but now developed dark-colored vomitus that smelled like stool. PAST MEDICAL HISTORY: CVA, hyperlipidemia, hypertension, BPH HOME MEDICATIONS: see list ALLERGIES: none VITALS: See Below PHYSICAL EXAMINATION: HEENT: Head - normocephalic and atraumatic. Pupils are equal, round, and reactive to light. Extraocular eye muscles are intact, and sclera are anicteric. Nose - moist nasal mucosa without discharge. Mouth - moist buccal mucosa. Oropharynx is nonerythematous and there is no tonsillar exudate or edema noted. Neck: Supple; no JVD or cervical lymphadenopathy Heart: Tachycardic rate and regular rhythm. There is a normal S1 and S2 with no murmurs, clicks, or gallops appreciated. Lungs: Clear to auscultation bilaterally with no wheezes, rales, or rhonchi. Abdomen: Soft, moderately distended, with hypoactive bowel sounds. There are no palpable pulsatile masses or hepatosplenomegaly. There is no guarding, rigidity, or rebound noted. Extremities: No evidence of cyanosis, clubbing, or edema. There are easily palpable peripheral pulses. Skin: warm and dry with good turgor and no rashes. Emergency Department Treatment: website admin, IV Zofran, IV normal saline bolus, IV cefepime Emergency Department course: Patient was evaluated in room B-4. Complete history and physical was performed. IV lock was initiated and labs are drawn as above. and order was placed for continuous cardiac monitoring. The patient was in a sinus tachycardia at a rate of 117. The patient was this of IV Zofran. patient have a septic protocol performed. he was bolused with IV normal saline. He was given a dose of IV cefepime. Chest x-ray was obtained. Patient then went for CT scan of the abdomen/pelvis. Patient was cathed for a urine specimen. Nursing staff then attempted a soapsuds enema. I discuss the case with the [facility] hospitalist and they will evaluate for further inpatient care. I have personally spent greater than 50 minutes of critical care time in the direct management of this patient. This includes bedside care, interpretation of diagnostic studies, and testing, discussion with consultants, patient, and family members, and other required patient management activities. This 50 minutes is in excess of all separately billable procedures. Past Med/Surg History Problem List (Updated 02/03/25 @ 05:27 by Svitlana Payan DO) Vomiting (Acute) Constipation (Acute) Sepsis (Acute) Right ureteral calculus Mesenteric panniculitis Constipation Feculent vomit on examination Sepsis Right knee pain Elevated troponin Ambulatory dysfunction (Acute) Generalized weakness (Acute) Influenza A (Acute) Medical History Hyperlipidemia Hypertension Social History Smoking Status: Unknown if ever smoked Second Hand Exposure: No; Do You Dip or Chew Tobacco: No; Tobacco Cessation Education Requested by Patient: No Hx Alcohol Use: Yes Alcohol type: beer Hx Substance Use: No Preferred Language: Italian Communication Ability: Effective Heavy Truck Mechanic Required: No Beliefs That Will Affect Care: None Current Living Situation: Alone Other Information That Helps Us Care for You: No Feels Safe at Home: Yes Safety Concerns: Feels Safe At This Time Assistive Devices: Hearing Aid - Bilateral Assistive Devices Comment: Hearing Aids At Home Allergies Allergies Allergy/AdvReac Type Severity Reaction Status Date / Time No Known Allergies Allergy Verified 02/02/25 08:58 Home Meds Home Medications Medication Instructions Recorded Confirmed Dextrose 50% 12.5 mg IV DIRECTED PRN 02/02/25 02/02/25 Hypoglycemia Dextrose 50% 25 g IM DIRECTED PRN 02/02/25 02/02/25 Hypoglycemia Fleet Enema 133 ml WI DAILY PRN Constipation 02/02/25 02/02/25 acetaminophen 325 mg tablet 650 mg PO Q4H PRN Pain 02/02/25 02/02/25 acetaminophen 500 mg tablet 500 mg PO Q4H PRN temp equal to or 02/02/25 02/02/25 >100.5 aspirin 81 mg tablet,delayed 81 mg PO DAILY 02/02/25 02/02/25 release bisacodyl 10 mg rectal suppository 10 mg WI DAILY PRN Constipation 02/02/25 02/02/25 calcium carbonate 500 mg PO Q8H PRN Indigestion 02/02/25 02/02/25 carbidopa 10 mg-levodopa 100 mg 1 tab PO TID 02/02/25 02/02/25 tablet cyanocobalamin (vitamin B-12) 500 500 mcg PO DAILY 02/02/25 02/02/25 mcg tablet docusate sodium 100 mg capsule 100 mg PO BID 02/02/25 02/02/25 docusate sodium 100 mg capsule 100 mg PO Q12 PRN Constipation 02/02/25 02/02/25 enoxaparin 40 mg/0.4 mL 40 mg subcut DAILY 02/02/25 02/02/25 subcutaneous syringe folic acid 1 mg tablet 1 mg PO DAILY 02/02/25 02/02/25 glucagon 1 mg solution for 1 mg IM DIRECTED PRN 02/02/25 02/02/25 injection Hypoglycemia lactulose 10 gram/15 mL oral 15 ml PO TID 02/02/25 02/02/25 solution melatonin 3 mg tablet 3 mg PO HS PRN Insomnia 02/02/25 02/02/25 ondansetron HCl 4 mg tablet 4 mg PO Q6H PRN n/v 02/02/25 02/02/25 polyethylene glycol 3350 17 17 g PO .@LUNCH PRN Constipation 02/02/25 02/02/25 gram/dose oral powder (Miralax) polyethylene glycol 3350 17 17 g PO DAILY 02/02/25 02/02/25 gram/dose oral powder (Miralax) sennosides 8.6 mg-docusate sodium 1 tab-cap PO .@LUNCH PRN 02/02/25 02/02/25 50 mg tablet (Senokot-S) Constipation zinc oxide 20 % topical ointment 1 applic topical BID 02/02/25 02/02/25 Results & Data (ED) Vital Signs Vital Signs - 24 hr 02/02/25 05:34 02/02/25 06:18 02/02/25 06:48 Pulse Rate 109 H Pulse Rate [Apical] 108 H 108 H Pulse Rhythm Regular Pulse Rhythm [Apical] Regular Regular Pulse Strength [Apical] Normal Respiratory Rate 16 18 18 Respiratory Effort / Characteristics Non-Labored Spontaneous Non-Labored Spontaneous Respiratory Depth Normal Normal Respiratory Pattern Regular Blood Pressure [Right Arm] 144/83 H 132/87 Blood Pressure Mean [Right Arm] 103 102 Blood Pressure Position [Right Arm] Pulse Oximetry 97 99 96 Oxygen Delivery Method Room Air Room Air Room Air 02/02/25 06:58 02/02/25 08:00 02/02/25 09:53 Pulse Rate 108 H Pulse Rate [Apical] 105 H 108 H Pulse Rhythm Pulse Rhythm [Apical] Pulse Strength [Apical] Respiratory Rate 20 16 Respiratory Effort / Characteristics Non-Labored Spontaneous Non-Labored Spontaneous Respiratory Depth Normal Normal Respiratory Pattern Regular Regular Blood Pressure [Right Arm] 125/97 135/87 Blood Pressure Mean [Right Arm] 106 103 Blood Pressure Position [Right Arm] Sitting Lying Pulse Oximetry 90 97 Oxygen Delivery Method Room Air Room Air 02/02/25 10:00 Pulse Rate Pulse Rate [Apical] 108 H Pulse Rhythm Pulse Rhythm [Apical] Pulse Strength [Apical] Respiratory Rate 20 Respiratory Effort / Characteristics Non-Labored Spontaneous Respiratory Depth Normal Respiratory Pattern Regular Blood Pressure [Right Arm] Blood Pressure Mean [Right Arm] Blood Pressure Position [Right Arm] Pulse Oximetry 98 Oxygen Delivery Method Room Air Laboratory Data 02/02/25 05:25 02/02/25 05:25 Lab Results 02/02/25 02/02/25 02/02/25 Range/Units 05:25 05:32 06:15 WBC 32.15 H* (4.8-10.8) K/ul RBC 6.11 H (4.70-6.10) M/uL Hgb 17.6 (14.0-18.0) g/dl POC Hgb 18.7 H (14.0-18.0) g/dl Hct 53.7 H (42.0-52.0) % POC Hct 55 H (42-52) % MCV 87.9 (80.0-100.0) fL MCH 28.8 (25.0-34.0) pg MCHC 32.8 (32.0-36.0) g/dL RDW Std Deviation 43.8 (36.4-46.3) fL RDW Coeff of Yanet 13.8 (11.5-14.5) % Plt Count 426 H (130-400) K/uL MPV 10.9 (9.4-12.4) fL Immature Gran % (Auto) 1.7 % Neut % (Auto) 87.2 % Lymph % (Auto) 4.5 % [place] % (Auto) 6.3 % Eos % (Auto) 0.0 % Baso % (Auto) 0.3 % Neut # (Auto) 28.04 H (1.40-6.50) K/uL Lymph # (Auto) 1.44 (1.20-3.40) K/uL [place] # (Auto) 2.01 H (0.11-0.59) K/uL Eos # (Auto) 0.00 (0.00-0.50) K/uL Baso # (Auto) 0.11 (0.00-0.20) K/uL Immature Gran # (Auto) 0.55 H (0.01-0.20) K/uL RBC Morphology Unremarkable Peripher Smr Path Cons ESR 63 H (0-20) mm/hr POC Sodium 142 (135-144) mmol/L Sodium 140 (136-145) mmol/L POC Potassium 4.6 (3.3-5.0) mmol/L Potassium 4.7 (3.5-5.1) mmol/L POC Chloride 105 (101-112) mmol/L Chloride 103 (98-107) mmol/L Carbon Dioxide 30 (21-32) mmol/L POC Total CO2 26 (24-31) mmol/L Anion Gap 7 (3-11) POC Anion Gap 16.0 (16-25) mmol/L POC BUN 27 H (7-18) mg/dl BUN 24 H (6-23) mg/dl Creatinine 1.26 (0.6-1.4) mg/dl POC Creatinine 1.3 (0.6-1.3) mg/dl Est Cr Clr Drug Dosing 45.2 ml/min eGFR 57.66 BUN/Creatinine Ratio 19.0 (10-20) Glucose 183 H (70-99(Fasting)) mg/dl POC Glucose (other) 185 H (70-99) mg/dl Lactate (0.4-2.0) mmol/L Calcium 10.9 H (8.6-10.3) mg/dl POC Ioniz Calcium Yesica 1.24 (1.12-1.32) mmol/l Magnesium (1.7-2.4) mg/dl Total Bilirubin 1.0 (0.2-1.0) mg/dl AST 18 (13-39) U/L ALT 16 (7-52) U/L Alkaline Phosphatase 65 (34-104) U/L Troponin I High Sens 10.5 (0-20) pg/ml C-Reactive Protein (0-0.5) mg/dl Total Protein 7.9 (6.0-8.3) gm/dl Albumin 4.2 (3.4-5.0) gm/dl Globulin 3.7 (2.5-4.0) gm/dl Albumin/Globulin Ratio 1.1 (0.9-2) Lipase 12 (11-82) U/L Procalcitonin 0.52 H (0-0.5) ng/ml Urine Color Yellow Urine Appearance Turbid A (Clear) Urine pH 7.5 (4.5-7.5) Ur Specific [place] 1.020 (1.000-1.030) Urine Protein 1+ H (Negative) Urine Glucose (UA) Negative (Negative) Urine Ketones Trace H (Negative) Urine Blood Negative (Negative) Urine Nitrite Negative (Negative) Urine Bilirubin Negative (Negative) Urine Urobilinogen Negative (Negative) Ur Leukocyte Esterase 1+ H (Negative) Urine WBC (Auto) 6-10 H (0-5) /hpf Urine RBC (Auto) 11-20 H (0-2) /hpf U Hyaline Cast (Auto) 0-2 (0-2) /lpf U Epithel Cells (Auto) >20 H (0-2) /hpf Urine Bacteria (Auto) None Seen (None Seen) Calcium Oxalate Crystal Present A (None Prsent) Amorphous Sediment Present A (None Prsent) 02/02/25 02/02/25 02/02/25 Range/Units 06:45 09:09 09:20 WBC (4.8-10.8) K/ul RBC (4.70-6.10) M/uL Hgb (14.0-18.0) g/dl POC Hgb (14.0-18.0) g/dl Hct (42.0-52.0) % POC Hct (42-52) % MCV (80.0-100.0) fL MCH (25.0-34.0) pg MCHC (32.0-36.0) g/dL RDW Std Deviation (36.4-46.3) fL RDW Coeff of Yanet (11.5-14.5) % Plt Count (130-400) K/uL MPV (9.4-12.4) fL Immature Gran % (Auto) % Neut % (Auto) % Lymph % (Auto) % [place] % (Auto) % Eos % (Auto) % Baso % (Auto) % Neut # (Auto) (1.40-6.50) K/uL Lymph # (Auto) (1.20-3.40) K/uL [place] # (Auto) (0.11-0.59) K/uL Eos # (Auto) (0.00-0.50) K/uL Baso # (Auto) (0.00-0.20) K/uL Immature Gran # (Auto) (0.01-0.20) K/uL RBC Morphology Peripher Smr Path Cons ESR (0-20) mm/hr POC Sodium (135-144) mmol/L Sodium (136-145) mmol/L POC Potassium (3.3-5.0) mmol/L Potassium (3.5-5.1) mmol/L POC Chloride (101-112) mmol/L Chloride (98-107) mmol/L Carbon Dioxide (21-32) mmol/L POC Total CO2 (24-31) mmol/L Anion Gap (3-11) POC Anion Gap (16-25) mmol/L POC BUN (7-18) mg/dl BUN (6-23) mg/dl Creatinine (0.6-1.4) mg/dl POC Creatinine (0.6-1.3) mg/dl Est Cr Clr Drug Dosing ml/min eGFR BUN/Creatinine Ratio (10-20) Glucose (70-99(Fasting)) mg/dl POC Glucose (other) (70-99) mg/dl Lactate 2.1 H* 1.7 (0.4-2.0) mmol/L Calcium (8.6-10.3) mg/dl POC Ioniz Calcium [place] (1.12-1.32) mmol/l Magnesium 2.2 (1.7-2.4) mg/dl Total Bilirubin (0.2-1.0) mg/dl AST (13-39) U/L ALT (7-52) U/L Alkaline Phosphatase (34-104) U/L Troponin I High Sens 17.6 D (0-20) pg/ml C-Reactive Protein 12.04 H (0-0.5) mg/dl Total Protein (6.0-8.3) gm/dl Albumin (3.4-5.0) gm/dl Globulin (2.5-4.0) gm/dl Albumin/Globulin Ratio (0.9-2) Lipase (11-82) U/L Procalcitonin (0-0.5) ng/ml Urine Color Urine Appearance (Clear) Urine pH (4.5-7.5) Ur Specific [place] (1.000-1.030) Urine Protein (Negative) Urine Glucose (UA) (Negative) Urine Ketones (Negative) Urine Blood (Negative) Urine Nitrite (Negative) Urine Bilirubin (Negative) Urine Urobilinogen (Negative) Ur Leukocyte Esterase (Negative) Urine WBC (Auto) (0-5) /hpf Urine RBC (Auto) (0-2) /hpf U Hyaline Cast (Auto) (0-2) /lpf U Epithel Cells (Auto) (0-2) /hpf Urine Bacteria (Auto) (None Seen) Calcium Oxalate Crystal (None Prsent) Amorphous Sediment (None Prsent) Administered Medications Carbidopa/Levodopa (Carbidopa/Levodop 10/100mg Tab) 1 tab PO TID ALFONZO Stop: 03/04/25 13:59 Last Admin: 02/02/25 14:30 Dose: 1 tab Documented By: ELISSA Cefepime HCl (Maxipime 2000mg) 2,000 mg in 20 mls @ 5 mls/min IV Q12H ALFONZO; Protocol Stop: 02/12/25 18:59 Last Admin: 02/02/25 20:00 Dose: 5 mls/min Documented By: TERA Metronidazole (Flagyl) 500 mg in 100 mls @ 100 mls/hr IV Q8H ALFONZO; Protocol Stop: 02/12/25 18:59 Last Infusion: 02/03/25 04:45 Dose: Infused Documented By: Admin: 02/03/25 03:45 Dose: 100 mls/hr Documented By: Infusion: 02/02/25 20:46 Dose: Infused Documented By: Admin: 02/02/25 19:46 Dose: 100 mls/hr Documented By: TERA Lactulose (Lactulose Syrup 10 Gm/15 Ml Btl 960 Ml) 10 gm PO TID ALFONZO Stop: 03/04/25 13:59 Last Admin: 02/02/25 20:19 Dose: 10 gm Documented By: Admin: 02/02/25 14:30 Dose: 10 gm Documented By: ELISSA Sennosides (Senna 8.6 Mg Tab) 17.2 mg PO HS ALFONZO Stop: 03/04/25 20:59 Last Admin: 02/02/25 20:24 Dose: 17.2 mg Documented By: TERA Discontinued Medications Sodium Chloride (Nss) 500 mls @ 999 mls/hr IV .Q31M ONE Stop: 02/02/25 05:52 Last Infusion: 02/02/25 06:15 Dose: Infused Documented By: Admin: 02/02/25 05:40 Dose: 999 mls/hr Documented By: YEVGENIY Sodium Chloride (Nss) 1,000 mls @ 999 mls/hr IV .Q1H1M ONE Stop: 02/02/25 07:22 Last Infusion: 02/02/25 08:02 Dose: Infused Documented By: Admin: 02/02/25 06:52 Dose: 999 mls/hr Documented By: YEVGENIY Cefepime HCl (Maxipime 2000mg) 2,000 mg in 20 mls @ 5 mls/min IV NOW STA; Protocol Stop: 02/02/25 06:36 Last Admin: 02/02/25 07:09 Dose: 5 mls/min Documented By: ANNIA Sodium Chloride (Nss) 500 mls @ 999 mls/hr IV .Q31M ONE Stop: 02/02/25 07:29 Last Infusion: 02/02/25 08:03 Dose: Infused Documented By: Admin: 02/02/25 07:10 Dose: 999 mls/hr Documented By: ANNIA Sodium Chloride (Nss) 250 mls @ 999 mls/hr IV .Q16M ONE Stop: 02/02/25 09:19 Last Infusion: 02/02/25 10:05 Dose: Infused Documented By: Admin: 02/02/25 09:38 Dose: 999 mls/hr Documented By: ANNIA Metronidazole (Flagyl) 500 mg in 100 mls @ 100 mls/hr IV NOW STA; Protocol Stop: 02/02/25 11:33 Last Infusion: 02/02/25 12:57 Dose: Infused Documented By: Admin: 02/02/25 11:49 Dose: 100 mls/hr Documented By: FREDA Ioversol (Optiray 320 100ml) 100 ml IV ONCE ONE Stop: 02/02/25 06:04 Last Admin: 02/02/25 06:03 Dose: 93 ml Documented By: NANO Ondansetron HCl (Ondansetron Inj 2 Mg/Ml 2 Ml Vial) Confirm Administered Dose 4 mg .ROUTE .STK-MED ONE Stop: 02/02/25 05:19 Last Admin: 02/02/25 05:40 Dose: 4 mg Documented By: [facility] Discharge Plan Visit Data Chief Complaint: Vomiting Stated Complaint: Vomiting, GI Assessment ED Provider: Svitlana Payan Discharge Problem: Sepsis, Constipation, Vomiting Patient Disposition: Admitted As Inpatient Discharge Instructions Interventions: ED Discharge Assessment Last Done: 02/02/25 12:00
[2025-02-02] MEDS: ONDANSETRON INJ 2 MG/ML 2 ML VIAL ONE (05:40)
[2025-02-02] MEDS: SODIUM CHLORIDE 0.9% 500 ML IV ONE ×2 (05:40→07:10)
[2025-02-02 05:43] LABS: iSTAT Creatinine 1.3 mg/dl (0.6-1.3); iSTAT Hemoglobin 18.7 g/dl (14.0-18.0); iSTAT Ionized Calcium 1.24 mmol/l (1.12-1.32); iSTAT Potassium 4.6 mmol/L (3.3-5.0)
[2025-02-02 06:00] LABS: Albumin Globulin Ratio 1.1 (0.9-2); Albumin Level 4.2 gm/dl (3.4-5.0); Calcium 10.9 mg/dl (8.6-10.3); Creatinine Clr Calc Pharmacy 45.2 ml/min; Globulin 3.7 gm/dl (2.5-4.0); Potassium 4.7 mmol/L (3.5-5.1); Total Protein 7.9 gm/dl (6.0-8.3)
[2025-02-02] MEDS: OPTIRAY 320 100ml IV ONE (06:03)
[2025-02-02 06:05] LABS: Troponin I High Sensitivity 10.5 pg/ml (0-20)
[2025-02-02 06:18] LABS: Basophils # (auto) 0.11 K/uL (0.00-0.20); Basophils % (auto) 0.3 %; Hematocrit (blood only) 53.7 % (42.0-52.0); Hemoglobin 17.6 g/dl (14.0-18.0); Immature Granulocytes # (auto) 0.55 K/uL (0.01-0.20); Immature Granulocytes % (auto) 1.7 %; Lymphocytes # (auto) 1.44 K/uL (1.20-3.40); Lymphocytes % (auto) 4.5 %; Mean Corpuscular Hemoglobin 28.8 pg (25.0-34.0); Mean Corpuscular Hgb Conc 32.8 g/dL (32.0-36.0); Mean Corpuscular Volume 87.9 fL (80.0-100.0); Mean Platelet Volume 10.9 fL (9.4-12.4); Monocytes # (auto) 2.01 K/uL (0.11-0.59); Monocytes % (auto) 6.3 %; Neutrophils # (auto) 28.04 K/uL (1.40-6.50); Neutrophils % (auto) 87.2 %; Platelet Count 426 K/uL (130-400); RBC Morphology Unremarkable; RDW Coefficient of Variation 13.8 % (11.5-14.5); RDW Standard Deviation 43.8 fL (36.4-46.3); Red Blood Count 6.11 M/uL (4.70-6.10); White Blood Count 32.15 K/ul (4.8-10.8)
[2025-02-02] MEDS: SODIUM CHLORIDE 0.9% 1,000 ML IV ONE (06:52)
--- NOTE | 2025-02-02 07:07 | CT Scan Report ---
EXAM: CT abd pelvis IV con only CLINICAL HISTORY: Evaluation for bowel obstruction. TECHNIQUE: Contrast-enhanced CT of the abdomen and pelvis was performed with the following protocol: axial images with reconstructed coronal and sagittal images. Intravenous contrast was administered. One of the following dose reduction techniques was utilized for this exam: Automated exposure control, adjustment of the mA and/or kV according to patient size, and use of iterative reconstruction. CTDI: 14.42mGy and DLP: 782.97mGy-cm. COMPARISON: None. FINDINGS: Abdomen: Liver: Normal in size, shape, and density. No focal lesions, cysts, or masses were identified. Hepatic vasculature and biliary ducts are unremarkable. Gallbladder and Biliary System: The gallbladder is normal in size and shape. No wall thickening, pericholecystic fluid, or gallstones were identified. The common bile duct is normal in caliber without dilation. Pancreas: The pancreatic head, body, and tail are visualized and appear normal in size and density. No pancreatic masses or calcifications were noted. The pancreatic duct is not dilated. Spleen: Normal in size, shape, and density. No splenic lesions or masses were identified. Appendix: The appendix is normal in size without blanac-appendiceal fat stranding and without an appendicolith. No evidence of appendiceal abscess or perforation. Kidneys and Adrenal Glands: Mild right renal hydronephrosis down to two large right renal pelvic and proximal ureteric stones, the largest noted in right renal pelvis measures 23 mm and its attenuation is 1750 HU. Both kidneys are normal in size, shape, and position. Cortical thickness is within normal limits. 6 mm stone seen at the upper calyceal group of the right kidney. Tiny bilateral renal cortical cysts. Adrenal glands are unremarkable, with no evidence of masses or hyperplasia. Pelvis: Urinary Bladder: Normal in contour and wall thickness. No intraluminal lesions were identified. Prostate: Normal in size and contour. Mildly heterogeneous prostate with calcifications. Seminal Vesicles: Normal in size and appearance. No abnormalities were noted. Rectum and Sigmoid Colon: Normal wall thickness and no evidence of mass. Peritoneal and Retroperitoneal Structures: No free fluid or abnormal fluid collections were identified within the abdomen or pelvis. An area of mesentric fatty stranding and multiple small mesentric lymph nodes are seen, representing mesenteric panniculitis. Bowel: Hiatus hernia is noted. The visualized bowel loops are normal in caliber and appearance. Loaded rectum and sigmoid with fecal material. Bones and Soft Tissues: Fat contaning left inguinal hernia. Diffuse osteopenia with degenerative changes, old compression fracture of L1 vertebral body. IMPRESSION: Mild right renal hydronephrosis down to two large right renal pelvic and proximal ureteric stones, the largest noted in right renal pelvis measures 23 mm and its attenuation is 1750 HU. Hiatus hernia is noted.6 mm stone seen at the upper calecyal group of the right kidney. Tiny bilateral renal cortical cysts. Fat contaning left inguinal hernia. Mildly heterogeneous prostate with calcifications. Area of mesentric fatty stranding and multiple small mesentric lymph nodes, seen, representing mesenteric panniculitis. Loaded rectum and sigmoid with fecal material. Diffuse osteopenia with degenerative changes, old compression fracture of L1 vertebral body. Electronically signed by Nicholas Robledo 02-02-2025 07:06 AM
[2025-02-02] MEDS: CEFEPIME 2000MG 2,000 MG/20 ML SYR IV STA (07:09)
[2025-02-02 07:50] LABS: Amorphous Sediment Urine Present (None Prsent); Appearance Urine Turbid (Clear); Bacteria Urine Automated None Seen (None Seen); Bilirubin Urine Negative (Negative); Blood Urine Negative (Negative); Calcium Oxalate Crystals Urine Present (None Prsent); Cast Urine Automated 0-2 /lpf (0-2); Color Urine Yellow; Epithelial Cell Urine Auto >20 /hpf (0-2); Glucose Urine UA Negative (Negative); Ketones Urine Trace (Negative); Leukocyte Esterase Urine 1+ (Negative); Nitrite Urine Negative (Negative); Protein Urine 1+ (Negative); Urobilinogen Urine Negative (Negative); pH Urine 7.5 (4.5-7.5)
--- NOTE | 2025-02-02 07:51 | XRay Report ---
EXAM: XR chest 1V portable CLINICAL HISTORY: leukocytosis TECHNIQUE: An X-ray image of the chest is obtained in AP projection. COMPARISON: 10/18/2023 CR. FINDINGS: Pulmonary Parenchyma: Reduced volume of both lungs likely due to poor inspiratory effort. Prominent bronchial markings with peribronchial thickening most at left upper zone. Lungs are clear bilaterally. No evidence of consolidation, collapse, or focal opacities. No pulmonary nodules are identified. No evidence of pleural effusion or pleural thickening. Heart and Mediastinum: Heart size and shape are normal. No mediastinal widening or masses. No hilar or mediastinal lymphadenopathy. Bony Thorax: Bony thorax appears intact without fractures or deformities. Soft Tissues: Soft tissues overlying the chest wall are unremarkable. IMPRESSION: 1. Reduced volume of both lungs likely due to poor inspiratory effort, stable. 2. Redemonstration of Prominent bronchial markings with peribronchial thickening mild increase at left upper zone. 3. No acute cardiopulmonary abnormalities are identified. 4. No other interval changes. Electronically signed by Nicholas Robledo 02-02-2025 07:50 AM
--- NOTE | 2025-02-02 08:22 | History & Physical Report ---
Date of Service February 02, 2025 Assessment & Plan (1) Sepsis: (2) Feculent vomit on examination: (3) Constipation: (4) Mesenteric panniculitis: Plan This is an 79-year-old male who presented on 02/02 for constipation and new onset feculent vomiting. 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 difficile ordered, pending #Constipation/fecal impaction/feculent emesis Last reported bowel movement on 01/21 While no bowel obstruction noted on A/P CT, loaded rectum and sigmoid with fecal material; ? Stercoral colitis Bowel regimen: MiraLAX 17 QAM Senna 17.2 HS Lactulose 10 g TID Milk of Magnesia q6h PRN Fleet enema 132 mL MS PRN Note: Patient has been receiving many of these treatments while at [facility] rehab If remains refractory to above treatments, will reach out to gastroenterology #Right renal hydronephrosis/ureteric stones/history of kidney stones A/P CT revealed 2 large right ureteric stones measuring up to 23 mm Per review of notes, prior surgical history includes kidney stone removal x 2 However, patient denies flank pain or lower back pain, and reports that his current pain does not feel like any prior kidney stone ? Obstructive uropathy as a complication of mesenteric pancolitis Urology consult appreciated #Parkinsonisms/gait abnormalities Patient recently started on trial of Sinemet for suspected Parkinson's, but this did not change his gait Okay to hold Sinemet for now Disposition: Admit to PCU telemetry VTE PPx: Lovenox 40 mg SQ q24h History of Present Illness Chief Complaint: Vomiting Primary Care Provider: JUANIS PCP Royal is a pleasant 79-year-old male with PMH of ischemic CVA, HLD, BPH, and HTN. He presented on 02/02 from [facility] for dark-colored emesis that smelled like stool, which began overnight the night prior. Patient has been at [facility] for approximately 10 days for ambulatory dysfunction. He has been taking laxatives, which has not been working; last normal bowel movement reported to be on 01/21. Patient believes he is in the hospital as he has been unable to defecate. Vomiting x 1 last night, however he reports that he had chocolate ice cream, and thinks this might of caused it. He is having minimal abdominal pain at this time; he does report 02/02 intermittent lower abdominal pain that he characterizes as sharp and dull. No flank pain or lower back pain. He has not been taking pain medicine for this. He does have a history of kidney stones, but does not feel like he currently has one. Patient believes he took his regular morning medicine today, but is not sure. Remote history of hospital mission at [facility] from 01/20 to 01/23 for generalized weakness, dehydration, and difficulty walking. Patient was sent to [facility] rehab thereafter. Patient denies smoking or tobacco use. No recent falls, trauma, or injuries to the abdomen pelvis. No ambulatory assist devices at baseline. Patient is tachycardic at 108 bpm at time admission; vitals otherwise stable. NSS 2000 mL IV Cefepime 2000 mg IV Zofran 4 mg IV ROS: Patient endorses vomiting x 1, abdominal pain (attributes to constipation medications), constipation, dry cough, Patient denies fever, chills, nightsweats, dizziness, lightheadedness, headache, chest pain, chest palpitations, SOB, hemoptysis, pleuritic CP, burning with urination, blood in the urine/stool, back pain, flank pain, saddle anesthesia, or numbness/tingling in the legs. Allergies Allergy/AdvReac Type Severity Reaction Status Date / Time No Known Allergies Allergy Verified 02/02/25 08:58 Home Medications Medication Instructions Recorded Confirmed Type Dextrose 50% 12.5 mg IV DIRECTED PRN 02/02/25 02/02/25 History Hypoglycemia Dextrose 50% 25 g IM DIRECTED PRN 02/02/25 02/02/25 History Hypoglycemia Fleet Enema 133 ml MS DAILY PRN Constipation 02/02/25 02/02/25 History acetaminophen 325 mg tablet 650 mg PO Q4H PRN Pain 02/02/25 02/02/25 History acetaminophen 500 mg tablet 500 mg PO Q4H PRN temp equal to or 02/02/25 02/02/25 History >100.5 aspirin 81 mg tablet,delayed 81 mg PO DAILY 02/02/25 02/02/25 History release bisacodyl 10 mg rectal suppository 10 mg MS DAILY PRN Constipation 02/02/25 02/02/25 History calcium carbonate 500 mg PO Q8H PRN Indigestion 02/02/25 02/02/25 History carbidopa 10 mg-levodopa 100 mg 1 tab PO TID 02/02/25 02/02/25 History tablet cyanocobalamin (vitamin B-12) 500 500 mcg PO DAILY 02/02/25 02/02/25 History mcg tablet docusate sodium 100 mg capsule 100 mg PO BID 02/02/25 02/02/25 History docusate sodium 100 mg capsule 100 mg PO Q12 PRN Constipation 02/02/25 02/02/25 History enoxaparin 40 mg/0.4 mL 40 mg subcut DAILY 02/02/25 02/02/25 History subcutaneous syringe folic acid 1 mg tablet 1 mg PO DAILY 02/02/25 02/02/25 History glucagon 1 mg solution for 1 mg IM DIRECTED PRN 02/02/25 02/02/25 History injection Hypoglycemia lactulose 10 gram/15 mL oral 15 ml PO TID 02/02/25 02/02/25 History solution melatonin 3 mg tablet 3 mg PO HS PRN Insomnia 02/02/25 02/02/25 History ondansetron HCl 4 mg tablet 4 mg PO Q6H PRN n/v 02/02/25 02/02/25 History polyethylene glycol 3350 17 17 g PO .@LUNCH PRN Constipation 02/02/25 02/02/25 History gram/dose oral powder (Miralax) polyethylene glycol 3350 17 17 g PO DAILY 02/02/25 02/02/25 History gram/dose oral powder (Miralax) sennosides 8.6 mg-docusate sodium 1 tab-cap PO .@LUNCH PRN 02/02/25 02/02/25 History 50 mg tablet (Senokot-S) Constipation zinc oxide 20 % topical ointment 1 applic topical BID 02/02/25 02/02/25 History Past Med/Surg History Problem List (Updated 02/03/25 @ 05:27 by Svitlana Payan DO) Vomiting (Acute) Constipation (Acute) Sepsis (Acute) Right ureteral calculus Mesenteric panniculitis Constipation Feculent vomit on examination Sepsis Right knee pain Elevated troponin Ambulatory dysfunction (Acute) Generalized weakness (Acute) Influenza A (Acute) Medical History Hyperlipidemia Hypertension Social History Smoking Status: Unknown if ever smoked Second Hand Exposure: No; Do You Dip or Chew Tobacco: No; Tobacco Cessation Education Requested by Patient: No Hx Alcohol Use: Yes Alcohol type: beer Hx Substance Use: No Preferred Language: Cypriot Communication Ability: Effective Repair Cameraman Required: No Beliefs That Will Affect Care: None Current Living Situation: Alone Other Information That Helps Us Care for You: No Feels Safe at Home: Yes Safety Concerns: Feels Safe At This Time Assistive Devices: Hearing Aid - Bilateral Assistive Devices Comment: Hearing Aids At Home Review of Systems Review of Systems: See HPI above Physical Exam Physical Exam: General: no acute distress; non-toxic appearing; well-nourished; cooperative; SpO2 97% on RA HEENT: normocephalic, atraumatic; no scleral icterus; PERRLA; brown crusting/emesis noted on the lower lip; dry mucous membranes; vision intact; hard of hearing Neck: supple; no lymphadenopathy; trachea midline Skin: warm, dry without signs of tenting; no cyanosis; no rashes, bruising, lesions, or erythema noted CV: chest wall NTP; RR, tachycardic around 110 bpm; S1/S2 normal; no murmurs/rubs/gallops; pulses intact and symmetric at radial, DP, and PT Lungs: no acute respiratory distress; symmetrical chest wall expansion; clear breath sounds across all lung ames w/o adventitious sounds; no wheezing ABD: Soft; lower abdomen is TTP bilaterally; superficial purple contusion noted just below the umbilicus; BS present; no rebound/guarding; no distention MSK: no tics or fasciculations; no edema noted in the LEs b/l, nonerythematous Neuro: A&Ox3; normal mood and affect; fluent speech; no focal deficits; sensation intact and symmetric in the lower extremity bilaterally Results & Data Results & Data Vital Signs (Past 12 Hours) Vital Signs Temp Pulse Pulse Resp BP BP Pulse Ox 02/02/25 08:00 108 H 16 135/87 97 02/02/25 06:58 105 H 20 125/97 90 02/02/25 06:48 108 H 18 132/87 96 02/02/25 06:18 108 H 18 144/83 H 99 02/02/25 05:34 109 H 16 97 02/02/25 05:16 115 H 02/02/25 05:12 36.9 C 111 H 18 115/81 99 O2 Del Method 02/02/25 08:00 Room Air 02/02/25 06:58 Room Air 02/02/25 06:48 Room Air 02/02/25 06:18 Room Air 02/02/25 05:34 Room Air 02/02/25 05:16 02/02/25 05:12 Room Air Laboratory Results Abnormal lab results 02/02/25 02/02/25 02/02/25 Range/Units 05:25 05:32 06:15 WBC 32.15 H* (4.8-10.8) K/ul RBC 6.11 H (4.70-6.10) M/uL POC Hgb 18.7 H (14.0-18.0) g/dl Hct 53.7 H (42.0-52.0) % POC Hct 55 H (42-52) % Plt Count 426 H (130-400) K/uL Neut # (Auto) 28.04 H (1.40-6.50) K/uL [place] # (Auto) 2.01 H (0.11-0.59) K/uL Immature Gran # (Auto) 0.55 H (0.01-0.20) K/uL POC BUN 27 H (7-18) mg/dl BUN 24 H (6-23) mg/dl Glucose 183 H (70-99(Fasting)) mg/dl POC Glucose (other) 185 H (70-99) mg/dl Lactate (0.4-2.0) mmol/L Calcium 10.9 H (8.6-10.3) mg/dl Urine Appearance Turbid A (Clear) Urine Protein 1+ H (Negative) Urine Ketones Trace H (Negative) Ur Leukocyte Esterase 1+ H (Negative) Urine WBC (Auto) 6-10 H (0-5) /hpf Urine RBC (Auto) 11-20 H (0-2) /hpf U Epithel Cells (Auto) >20 H (0-2) /hpf Calcium Oxalate Crystal Present A (None Prsent) Amorphous Sediment Present A (None Prsent) 02/02/25 Range/Units 06:45 WBC (4.8-10.8) K/ul RBC (4.70-6.10) M/uL POC Hgb (14.0-18.0) g/dl Hct (42.0-52.0) % POC Hct (42-52) % Plt Count (130-400) K/uL Neut # (Auto) (1.40-6.50) K/uL [place] # (Auto) (0.11-0.59) K/uL Immature Gran # (Auto) (0.01-0.20) K/uL POC BUN (7-18) mg/dl BUN (6-23) mg/dl Glucose (70-99(Fasting)) mg/dl POC Glucose (other) (70-99) mg/dl Lactate 2.1 H* (0.4-2.0) mmol/L Calcium (8.6-10.3) mg/dl Urine Appearance (Clear) Urine Protein (Negative) Urine Ketones (Negative) Ur Leukocyte Esterase (Negative) Urine WBC (Auto) (0-5) /hpf Urine RBC (Auto) (0-2) /hpf U Epithel Cells (Auto) (0-2) /hpf Calcium Oxalate Crystal (None Prsent) Amorphous Sediment (None Prsent) Diagnostic Findings Abdomen/Pelvis CT 02/02/25 05:23 EXAM: CT abd pelvis IV con only CLINICAL HISTORY: Evaluation for bowel obstruction. TECHNIQUE: Contrast-enhanced CT of the abdomen and pelvis was performed with the following protocol: axial images with reconstructed coronal and sagittal images. Intravenous contrast was administered. One of the following dose reduction techniques was utilized for this exam: Automated exposure control, adjustment of the mA and/or kV according to patient size, and use of iterative reconstruction. CTDI: 14.42mGy and DLP: 782.97mGy-cm. COMPARISON: None. FINDINGS: Abdomen: Liver: Normal in size, shape, and density. No focal lesions, cysts, or masses were identified. Hepatic vasculature and biliary ducts are unremarkable. Gallbladder and Biliary System: The gallbladder is normal in size and shape. No wall thickening, pericholecystic fluid, or gallstones were identified. The common bile duct is normal in caliber without dilation. Pancreas: The pancreatic head, body, and tail are visualized and appear normal in size and density. No pancreatic masses or calcifications were noted. The pancreatic duct is not dilated. Spleen: Normal in size, shape, and density. No splenic lesions or masses were identified. Appendix: The appendix is normal in size without blanca-appendiceal fat stranding and without an appendicolith. No evidence of appendiceal abscess or perforation. Kidneys and Adrenal Glands: Mild right renal hydronephrosis down to two large right renal pelvic and proximal ureteric stones, the largest noted in right renal pelvis measures 23 mm and its attenuation is 1750 HU. Both kidneys are normal in size, shape, and position. Cortical thickness is within normal limits. 6 mm stone seen at the upper calyceal group of the right kidney. Tiny bilateral renal cortical cysts. Adrenal glands are unremarkable, with no evidence of masses or hyperplasia. Pelvis: Urinary Bladder: Normal in contour and wall thickness. No intraluminal lesions were identified. Prostate: Normal in size and contour. Mildly heterogeneous prostate with calcifications. Seminal Vesicles: Normal in size and appearance. No abnormalities were noted. Rectum and Sigmoid Colon: Normal wall thickness and no evidence of mass. Peritoneal and Retroperitoneal Structures: No free fluid or abnormal fluid collections were identified within the abdomen or pelvis. An area of mesentric fatty stranding and multiple small mesentric lymph nodes are seen, representing mesenteric panniculitis. Bowel: Hiatus hernia is noted. The visualized bowel loops are normal in caliber and appearance. Loaded rectum and sigmoid with fecal material. Bones and Soft Tissues: Fat contaning left inguinal hernia. Diffuse osteopenia with degenerative changes, old compression fracture of L1 vertebral body. IMPRESSION: Mild right renal hydronephrosis down to two large right renal pelvic and proximal ureteric stones, the largest noted in right renal pelvis measures 23 mm and its attenuation is 1750 HU. Hiatus hernia is noted.6 mm stone seen at the upper calecyal group of the right kidney. Tiny bilateral renal cortical cysts. Fat contaning left inguinal hernia. Mildly heterogeneous prostate with calcifications. Area of mesentric fatty stranding and multiple small mesentric lymph nodes, seen, representing mesenteric panniculitis. Loaded rectum and sigmoid with fecal material. Diffuse osteopenia with degenerative changes, old compression fracture of L1 vertebral body. Electronically signed by Nicholas Robledo 02-02-2025 07:06 AM Chest X-Ray 02/02/25 06:25 EXAM: XR chest 1V portable CLINICAL HISTORY: leukocytosis TECHNIQUE: An X-ray image of the chest is obtained in AP projection. COMPARISON: 10/18/2023 CR. FINDINGS: Pulmonary Parenchyma: Reduced volume of both lungs likely due to poor inspiratory effort. Prominent bronchial markings with peribronchial thickening most at left upper zone. Lungs are clear bilaterally. No evidence of consolidation, collapse, or focal opacities. No pulmonary nodules are identified. No evidence of pleural effusion or pleural thickening. Heart and Mediastinum: Heart size and shape are normal. No mediastinal widening or masses. No hilar or mediastinal lymphadenopathy. Bony Thorax: Bony thorax appears intact without fractures or deformities. Soft Tissues: Soft tissues overlying the chest wall are unremarkable. IMPRESSION: 1. Reduced volume of both lungs likely due to poor inspiratory effort, stable. 2. Redemonstration of Prominent bronchial markings with peribronchial thickening mild increase at left upper zone. 3. No acute cardiopulmonary abnormalities are identified. 4. No other interval changes. Electronically signed by Nicholas Robledo 02-02-2025 07:50 AM Code Status & VTE Plan Code Status Full code Supervising Physician Co-Signing Physician Notes Patient seen and examined, chart reviewed, case discussed with Rell Patino PA-C and I agree with the assessment and plan as above except as otherwise noted Labs and images reviewed 79-year-old male with a history of ischemic CVA, hypertension, BPH, hyperlipidemia who presented with [facility] with dark-colored feculent smelling emesis. CTA/P did not show evidence of bowel obstruction however did show mild right renal hydro with pelvic and proximal uteric stones, hiatal hernia, and area of mesenteric fatty stranding and multiple small mesenteric lymph nodes representing mesenteric panniculitis. Loaded rectum and sigmoid with significant fecal material was seen. Patient underwent a manual disimpaction and soapsuds enema while in the emergency department. No urinary symptoms, UA ?contaminated appearing but without bacteria/nitrates. Follow UCx. Continued on cefepime Flagyl on admission Marked leukocytosis with left shift /immature granulocytic expansion. Patient denies appear septic or toxic is afebrile. No rigors. Due to concurrent mesenteric panniculitis and markedly high leukocytosis without signs of sepsis peripheral smear ordered. Will review with GI,? Biopsy versus need for azathioprine/steroids for panniculitis. Will defer these initial evaluation until sepsis and infectious etiologies are further evaluated and treated. He is consuming cefepime/Flagyl with infectious sources including possible UTI, and translocation with stool loading? Stercoral colitis. CBC, CRP trended Agree with above PG Care Time/CCT Total # of Minutes Spent Total Time Spent with Patient: Total time spent is greater than 50% in coordination of care (as documented) at patient's floor/unit and/or counseling patient: Coding [place] [address] INT INP/OBS CARE 3/75MIN Patient Type Established Medical Decision Making High Complexity Diagnoses Sepsis A41.9 Feculent vomit on examination R11.13 Constipation K59.00 Mesenteric panniculitis K65.4
[2025-02-02] MEDS: SODIUM CHLORIDE 0.9% 250 ML IV ONE (09:38)
[2025-02-02 09:53] LABS: C Reactive Protein 12.04 mg/dl (0-0.5); Magnesium 2.2 mg/dl (1.7-2.4)
[2025-02-02 10:02] LABS: Troponin I High Sensitivity 17.6 pg/ml (0-20)
[2025-02-02] MEDS: metroNIDAZOLE 500 MG/100 ML BAG IV STA (11:49)
--- NOTE | 2025-02-02 12:14 | Urology Consultation ---
<Statement entered by Carlos A Casper MD - 02/02/25 14:41> I have discussed Mr. Duran's case with SHAYNA June and agree with the above documentation. 79-year-old male who presented to the emergency department with abdominal pain and vomiting. Urology was consulted for large stone seen on CT scan. CT demonstrated Cysts of the left kidney but no significant stones or hydronephrosis. Right kidney notable for very large stone in the in the renal pelvis/proximal ureter, I measured this at 2.8 cm. There are additional right ureteral stones measuring up to 16 mm in diameter. Bladder is fairly distended and prostate is relatively normal in size. There is a large amount of stool in his rectal vault. Lab work notable for significant leukocytosis (WBC 32.15). ESR (63) and procalcitonin (0.52) are both elevated as well suggesting possible infection. Urinalysis did not demonstrate any bacteria, was negative for nitrates and only demonstrated 1+ leukocyte esterase. Overall lab work suggests that he has an infection, although his urine is not overly suspicious. With the size of his stones, I think ureteral stent placement has a low chance of success to provide drainage of his kidney, and even if stents could be placed, there would be a high risk of extrinsic compression from the stone causing further obstruction. If there is concern for obstructed UTI, I would recommend transfer for nephrostomy tube for the right kidney. This would have the added benefit of providing access for potential future stone procedure with percutaneous nephrolithotomy. Patient did not want to have any intervention on his stones here at [facility]. Would be reasonable to monitor with antibiotics and supportive care from the urology perspective for now. If he decompensates, would recommend transfer for nephrostomy tube. -Carlos A Casper MD. Date of Consultation February 02, 2025 Assessment & Plan (1) Right ureteral calculus: 79 yo/M presented to ED from [facility] for evaluation of feculent vomiting. CT abd/pelvis on admission notable for mild right hydronephrosis secondary to 2 large stones in right renal pelvis, largest measuring 23 mm. Urology is consulted for obstructive stone Patient is afebrile, tachycardic, but otherwise stable vitals Lab work reviewedWBC 32.15, creatinine 1.26, hemoglobin 17.6 Continue to trend labs- unclear if his leukocytosis is related to stone or other etiology, his urinalysis is not overly suspicious for infection UA showed 1+ LE, 6-10 WBC, >20 epithelials, negative for bacteria Recommend urine culture Blood cultures are pending CT reviewed and discussed with patient2 stones in right renal pelvis, largest m easuring 23 mm, mild right hydronephrosis Patient seems largely asymptomatic from stone standpoint He has been having some abdominal discomfort and vomiting prior to arrival; 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 Discussed consideration of intervention with cystoscopy and right ureteral stent placement, however, given extremely large stone size, it may be challengin g to place a stent in retrograde fashion Alternatively, we discussed possible percutaneous nephrostomy tube placement and then eventually pursuing PCNL for treatment of large stone He tells me he does not want to have intervention on stone at present No acute intervention at this time If he becomes febrile or clinically worsens, then recommend transfer for percutaneous nephrostomy tube Continue supportive care and medical management per medicine service will follow History of Present Illness Reason for Consultation: Obstructive stone Attending Physician: Dr. Monroe History of Present Illness This is an 87-year-old male with past medical history of CVA, hypertension, hyperlipidemia, BPH and nephrolithiasis who presented to the ED on 02/02/25 from [facility] for evaluation of dark-colored emesis that smelled like stool. He has been at [facility] for rehab for ambulatory dysfunction. Last bowel movement reported to be 01/21. On arrival to ED, he was afebrile, tachycardic, otherwise stable vitals. Lab work showed WBC of 32.15, hemoglobin 17.6, platelets 426, creatinine 1.26, lactate 2.1. Urinalysis showed 1+ LE, 11-20 RBC, 6-10 WBC, >20 epithelial cells, negative for bacteria, calcium oxalate crystals present. Workup included CT abdomen with contrast which demonstrated mild right hydronephrosis secondary to 2 large right renal pelvic and proximal ureteral stones measuring up to 23 mm; 6 mm nonobstructing right renal stone. Small bilateral renal cortical cysts. 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 ED course: IV fluids, cefepime, Zofran. Patient admitted to medicine service. Urology is consulted for obstructive stone. Patient seen and examined in the emergency room. He is resting in litter, no apparent distress. He reports he is here because his daughter wanted him evaluated. Reports he has been weak. He denies flank pain. Reports intermittent abdominal discomfort. Denies nausea/vomiting at present. No fever or chills. Voiding spontaneously. Denies dysuria or hematuria. Reports prior stone history with prior surgery, but he is unable to provide any specific details. He thinks he had stone treatment in [place] previously. Denies following with a urologist at present. Allergies Allergy/AdvReac Type Severity Reaction Status Date / Time No Known Allergies Allergy Verified 02/02/25 08:58 Home Medications Medication Instructions Recorded Confirmed Type Dextrose 50% 12.5 mg IV DIRECTED PRN 02/02/25 02/02/25 History Hypoglycemia Dextrose 50% 25 g IM DIRECTED PRN 02/02/25 02/02/25 History Hypoglycemia Fleet Enema 133 ml RI DAILY PRN Constipation 02/02/25 02/02/25 History acetaminophen 325 mg tablet 650 mg PO Q4H PRN Pain 02/02/25 02/02/25 History acetaminophen 500 mg tablet 500 mg PO Q4H PRN temp equal to or 02/02/25 02/02/25 History >100.5 aspirin 81 mg tablet,delayed 81 mg PO DAILY 02/02/25 02/02/25 History release bisacodyl 10 mg rectal suppository 10 mg RI DAILY PRN Constipation 02/02/25 02/02/25 History calcium carbonate 500 mg PO Q8H PRN Indigestion 02/02/25 02/02/25 History carbidopa 10 mg-levodopa 100 mg 1 tab PO TID 02/02/25 02/02/25 History tablet cyanocobalamin (vitamin B-12) 500 500 mcg PO DAILY 02/02/25 02/02/25 History mcg tablet docusate sodium 100 mg capsule 100 mg PO BID 02/02/25 02/02/25 History docusate sodium 100 mg capsule 100 mg PO Q12 PRN Constipation 02/02/25 02/02/25 History enoxaparin 40 mg/0.4 mL 40 mg subcut DAILY 02/02/25 02/02/25 History subcutaneous syringe folic acid 1 mg tablet 1 mg PO DAILY 02/02/25 02/02/25 History glucagon 1 mg solution for 1 mg IM DIRECTED PRN 02/02/25 02/02/25 History injection Hypoglycemia lactulose 10 gram/15 mL oral 15 ml PO TID 02/02/25 02/02/25 History solution melatonin 3 mg tablet 3 mg PO HS PRN Insomnia 02/02/25 02/02/25 History ondansetron HCl 4 mg tablet 4 mg PO Q6H PRN n/v 02/02/25 02/02/25 History polyethylene glycol 3350 17 17 g PO .@LUNCH PRN Constipation 02/02/25 02/02/25 History gram/dose oral powder (Miralax) polyethylene glycol 3350 17 17 g PO DAILY 02/02/25 02/02/25 History gram/dose oral powder (Miralax) sennosides 8.6 mg-docusate sodium 1 tab-cap PO .@LUNCH PRN 02/02/25 02/02/25 History 50 mg tablet (Senokot-S) Constipation zinc oxide 20 % topical ointment 1 applic topical BID 02/02/25 02/02/25 History Patient History Medical History Hyperlipidemia Hypertension Social History Smoking Status: Former smoker Hx Alcohol Use: No Hx Substance Use: No Preferred Language: Welsh Communication Ability: Effective Hospital Medical Biller Required: No Beliefs That Will Affect Care: None Current Living Situation: Alone Feels Safe at Home: Yes Assistive Devices: Walker Review of Systems Review of Systems: All systems reviewed & are unremarkable except as noted in HPI & below Physical Exam Constitutional: no acute distress Respiratory: normal respiratory effort; no respiratory distress and no labored breathing Cardiovascular: Rate/Rhythm: + tachycardic Musculoskeletal: Head/Neck/Chest: normocephalic Neurologic: moves all extremities and awake Psychiatric: Orientation: alert and oriented x 3 Results & Data Vital Signs (Past 12 Hours) Vital Signs Temp Pulse Pulse Resp BP BP Pulse Ox 02/02/25 11:49 94 H 24 138/81 96 02/02/25 10:00 108 H 20 98 02/02/25 09:53 108 H 02/02/25 08:00 108 H 16 135/87 97 02/02/25 06:58 105 H 20 125/97 90 02/02/25 06:48 108 H 18 132/87 96 02/02/25 06:18 108 H 18 144/83 H 99 02/02/25 05:34 109 H 16 97 02/02/25 05:16 115 H 02/02/25 05:12 36.9 C 111 H 18 115/81 99 O2 Del Method 02/02/25 11:49 Room Air 02/02/25 10:00 Room Air 02/02/25 09:53 02/02/25 08:00 Room Air 02/02/25 06:58 Room Air 02/02/25 06:48 Room Air 02/02/25 06:18 Room Air 02/02/25 05:34 Room Air 02/02/25 05:16 02/02/25 05:12 Room Air PG Care Time/CCT Total # of Minutes Spent Total Time Spent with Patient: Total time spent is greater than 50% in coordination of care (as documented) at patient's floor/unit and/or counseling patient: Coding Level of Care Code 91391 INT INP/OBS CARE 3/75MIN Diagnoses Right ureteral calculus N20.1
[2025-02-02] MEDS ORDERED: ACETAMINOPHEN 325 MG TAB PO PRN (12:50)
[2025-02-02] MEDS ORDERED: MAGNESIUM HYDROXIDE SUSP 30 ML UDC PO PRN (12:50)
[2025-02-02] MEDS ORDERED: SOD PHOSPHATE/SOD BIPHOSPHATE ENEMA 132 ML BTL PR PRN (12:50)
[2025-02-02] MEDS: LACTULOSE SYRUP 10 GM/15 ML BTL 960 ML PO SCH (14:30)
[2025-02-02] MEDS: CARBIDOPA/LEVODOP 10/100MG TAB PO SCH (14:30)
[2025-02-02] MEDS: metroNIDAZOLE 500 MG/100 ML BAG IV SCH (19:46)
[2025-02-02] MEDS: CEFEPIME 2000MG 2,000 MG/20 ML SYR IV SCH (20:00)
[2025-02-02] MEDS: SENNA 8.6 MG TAB PO SCH (20:24)
--- NOTE | 2025-02-02 20:33 | Electrocardiogram Report ---
Test Reason : Blood Pressure : */* mmHG Vent. Rate : 112 BPM Atrial Rate : 112 BPM P-R Int : 170 ms QRS Dur : 106 ms QT Int : 334 ms P-R-T Axes : 51 226 47 degrees QTcB Int : 455 ms Sinus tachycardia Incomplete right bundle branch block Possible Lateral infarct , age undetermined Inferior infarct , age undetermined Abnormal ECG When compared with ECG of 19-Oct-2023 08:41, Incomplete right bundle branch block has replaced Right bundle branch block Borderline criteria for Lateral infarct are now Present Inferior infarct is now Present Confirmed by Jimmy Bolden ([id number]) on 02/02/2025 8:33:24 PM Referred By: REFERRED SELF Confirmed By: Jimmy Bolden
--- NOTE | 2025-02-03 07:30 | Urology Progress Note ---
Date of Service February 03, 2025 Assessment & Plan (1) Right ureteral calculus: Plan 79 year-old male admitted with feculent vomiting. He had a CT abd/pelvis on admission notable for mild right hydronephrosis secondary to 2 large stones in right renal pelvis, largest measuring 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 Admission and Anticipated Discharge Date Admission Date: February 02, 2025 Subjective Patient examined this morning at bedside. He is awake, alert, comfortable. He currently denies any flank pain. Reports his abdominal pain has improved. Tolerating diaz catheter. Denies fevers or chills. Denies nausea or vomiting. Labs reviewed - Pending T-max overnight 37.6 C. Patient has been slightly tachycardic. Denies additional urologic concerns today. Results & Data Vital Signs (Past 12 Hours) Vital Signs Temp Pulse Pulse Resp BP Pulse Ox O2 Del Method 02/03/25 07:19 36.7 C 100 H 18 117/74 97 Room Air 02/03/25 03:53 37.0 C 95 H 18 149/80 H 97 Room Air 02/02/25 23:39 37.6 C H 77 17 110/73 95 Room Air 02/02/25 21:39 104 H 02/02/25 20:00 Room Air
[2025-02-03 07:54] LABS: Hematocrit (blood only) 45.3 % (42.0-52.0); Hemoglobin 14.4 g/dl (14.0-18.0); Mean Corpuscular Hemoglobin 28.1 pg (25.0-34.0); Mean Corpuscular Hgb Conc 31.8 g/dL (32.0-36.0); Mean Corpuscular Volume 88.3 fL (80.0-100.0); Mean Platelet Volume 11.3 fL (9.4-12.4); Platelet Count 335 K/uL (130-400); RDW Coefficient of Variation 14.1 % (11.5-14.5); RDW Standard Deviation 45.3 fL (36.4-46.3); Red Blood Count 5.13 M/uL (4.70-6.10); White Blood Count 26.68 K/ul (4.8-10.8)
[2025-02-03 08:10] LABS: BUN Creatinine Ratio 21.6 (10-20); Calcium 9.3 mg/dl (8.6-10.3); Creatinine Clr Calc Pharmacy 55.9 ml/min; Potassium 4.2 mmol/L (3.5-5.1)
[2025-02-03 08:11] LABS: Basophils # (auto) 0.07 K/uL (0.00-0.20); Basophils % (auto) 0.3 %; Eosinophils # (auto) 0.01 K/uL (0.00-0.50); Immature Granulocytes # (auto) 0.31 K/uL (0.01-0.20); Immature Granulocytes % (auto) 1.2 %; Lymphocytes # (auto) 1.81 K/uL (1.20-3.40); Lymphocytes % (auto) 6.8 %; Monocytes # (auto) 1.66 K/uL (0.11-0.59); Monocytes % (auto) 6.2 %; Neutrophils # (auto) 22.82 K/uL (1.40-6.50); Neutrophils % (auto) 85.5 %; Polychromasia 1+
--- NOTE | 2025-02-03 09:01 | Urology Progress Note ---
Date of Service February 03, 2025 Assessment & Plan (1) Right ureteral calculus: Plan 79 year-old male admitted with feculent vomiting, mesenteric panniculitis. He had a CT abd/pelvis on admission notable for mild right hydronephrosis secondary to 2 large stones in right renal pelvis, largest measuring 25 mm. Fortunately, he is not having any flank pain. He is afebrile. White count remains elevated, however improved from prior. Stable creatinine. Will continue to monitor closely from perspective. Can consider intervening with ureteral stent versus transfer for nephrostomy tube with any acute changes. Will make him NPO at midnight and reassess him in the morning to determine if intervention is warranted. Please consult our service urgently if patient develops fever >101F, intractable pain or nausea, as this will necessitate urgent surgical intervention. Admission and Anticipated Discharge Date Admission Date: February 02, 2025 Subjective Patient examined this morning at bedside. He is awake, alert, comfortable. He currently denies any flank pain. Reports his abdominal pain has improved. Tolerating diaz catheter. Denies fevers or chills. Denies nausea or vomiting. Labs reviewed - White count 26.68 Hgb 14.4 Creatinine 1.02. T-max overnight 37.6 C. Patient has been slightly tachycardic. Denies additional urologic concerns today. Review of Systems Constitutional: as per Subjective / HPI; no fever and no chills Gastrointestinal: as per Subjective / HPI; no nausea and no vomiting Genitourinary: + as per Subjective / HPI Physical Exam Constitutional: well developed and well nourished; no acute distress and not ill appearing Respiratory: normal respiratory effort and able to speak in complete sentences; no respiratory distress and no audible wheezes Psychiatric: Orientation: alert, oriented x 3 and cooperative Affect: euthymic affect Genitourinary: no CVA tenderness Diaz catheter draining clear yellow urine. Results & Data Vital Signs (Past 12 Hours) Vital Signs Temp Pulse Pulse Resp BP Pulse Ox O2 Del Method 02/03/25 07:19 36.7 C 100 H 18 117/74 97 Room Air 02/03/25 03:53 37.0 C 95 H 18 149/80 H 97 Room Air 02/02/25 23:39 37.6 C H 77 17 110/73 95 Room Air 02/02/25 21:39 104 H PG Care Time/CCT Total # of Minutes Spent Total Time Spent with Patient: Total time spent is greater than 50% in coordination of care (as documented) at patient's floor/unit and/or counseling patient: Coding Level of Care Code 98381 SUB INP/OBS CARE 2/35MIN Diagnoses Right ureteral calculus N20.1
[2025-02-03 09:05] LABS: C Reactive Protein 17.77 mg/dl (0-0.5)
[2025-02-03] MEDS: ASPIRIN 81 MG ECTAB PO SCH (09:15)
[2025-02-03] MEDS: FOLIC ACID 1 MG TAB PO SCH (09:15)
[2025-02-03] MEDS: POLYETHYLENE (MIRALAX) 17 GM PACK PO SCH (09:53)
--- NOTE | 2025-02-03 10:45 | Gastrointestinal Consultation ---
Date of Consultation February 03, 2025 Assessment & Plan (1) Constipation: (2) Mesenteric panniculitis: Plan Patient is feeling much better since he has moved his bowels. no further abdominal pain, nausea, vomiting. no current GI concerns. - continue with current bowel regimen of lactulose 10gm TID, miralax 17gm daily, senna qhs. Supervising Physician Co-Signing Physician Notes I saw and examined this patient with our nurse practitioner and agree with her assessment and plan. Clinically improved on bowel regimen with resolution of constipation nausea and vomiting. She states still remaining of the mesenteric panniculitis seen on CT scan and leukocytosis without a clear etiology for infection. Await blood culture results. Agree with further evaluation of his mesenteric panniculitis as an outpatient with hematology oncology. No GI workup warranted at this time unless his symptoms recur. History of Present Illness Reason for Consultation: mesenteric panniculitis Requesting Physician: Ze Monroe MD Attending Physician: Ze Monroe MD History of Present Illness Patient is an 79 year old male with a past medical history of ischemic CVA, HLD, BPH, and HTN who presented to the ED on 02/02 from [facility] for dark-colored emesis that reportedly smelled like stool.. Patient has been at [facility] for approximately 10 days for ambulatory dysfunction. He had been taking laxatives, which has not been working and per chart, last normal bowel movement reported to be on 01/21. He had CT scan showing loaded rectum and sigmoid colon with fecal material and mesenteric panniculitis. He tells me that since admission, he had moved his bowels and has had no further abdominal pain, nausea, or vomiting since that time. he tells me he is feeling much better sin ce he had bowel movement. Rest of GI ros are unremarkable. Allergies Allergy/AdvReac Type Severity Reaction Status Date / Time No Known Allergies Allergy Verified 02/02/25 08:58 Home Medications Medication Instructions Recorded Confirmed Type Dextrose 50% 12.5 mg IV DIRECTED PRN 02/02/25 02/02/25 History Hypoglycemia Dextrose 50% 25 g IM DIRECTED PRN 02/02/25 02/02/25 History Hypoglycemia Fleet Enema 133 ml MD DAILY PRN Constipation 02/02/25 02/02/25 History acetaminophen 325 mg tablet 650 mg PO Q4H PRN Pain 02/02/25 02/02/25 History acetaminophen 500 mg tablet 500 mg PO Q4H PRN temp equal to or 02/02/25 02/02/25 History >100.5 aspirin 81 mg tablet,delayed 81 mg PO DAILY 02/02/25 02/02/25 History release bisacodyl 10 mg rectal suppository 10 mg MD DAILY PRN Constipation 02/02/25 02/02/25 History calcium carbonate 500 mg PO Q8H PRN Indigestion 02/02/25 02/02/25 History carbidopa 10 mg-levodopa 100 mg 1 tab PO TID 02/02/25 02/02/25 History tablet cyanocobalamin (vitamin B-12) 500 500 mcg PO DAILY 02/02/25 02/02/25 History mcg tablet docusate sodium 100 mg capsule 100 mg PO BID 02/02/25 02/02/25 History docusate sodium 100 mg capsule 100 mg PO Q12 PRN Constipation 02/02/25 02/02/25 History enoxaparin 40 mg/0.4 mL 40 mg subcut DAILY 02/02/25 02/02/25 History subcutaneous syringe folic acid 1 mg tablet 1 mg PO DAILY 02/02/25 02/02/25 History glucagon 1 mg solution for 1 mg IM DIRECTED PRN 02/02/25 02/02/25 History injection Hypoglycemia lactulose 10 gram/15 mL oral 15 ml PO TID 02/02/25 02/02/25 History solution melatonin 3 mg tablet 3 mg PO HS PRN Insomnia 02/02/25 02/02/25 History ondansetron HCl 4 mg tablet 4 mg PO Q6H PRN n/v 02/02/25 02/02/25 History polyethylene glycol 3350 17 17 g PO .@LUNCH PRN Constipation 02/02/25 02/02/25 History gram/dose oral powder (Miralax) polyethylene glycol 3350 17 17 g PO DAILY 02/02/25 02/02/25 History gram/dose oral powder (Miralax) sennosides 8.6 mg-docusate sodium 1 tab-cap PO .@LUNCH PRN 02/02/25 02/02/25 History 50 mg tablet (Senokot-S) Constipation zinc oxide 20 % topical ointment 1 applic topical BID 02/02/25 02/02/25 History Patient History Medical History Hyperlipidemia Hypertension Social History Smoking Status: Unknown if ever smoked Second Hand Exposure: No; Do You Dip or Chew Tobacco: No; Tobacco Cessation Education Requested by Patient: No Hx Alcohol Use: Yes Alcohol type: beer Hx Substance Use: No Preferred Language: Urdu Communication Ability: Effective Office Services Associate Required: No Beliefs That Will Affect Care: None Current Living Situation: Alone Other Information That Helps Us Care for You: No Feels Safe at Home: Yes Safety Concerns: Feels Safe At This Time Assistive Devices: Walker and Wheelchair Assistive Devices Comment: Hearing Aids At Home Review of Systems Review of Systems: All systems reviewed & are unremarkable except as noted in HPI & below Physical Exam Constitutional: WD/WN, vitals as above ENMT: hard of hearing Respiratory: normal respiratory effort, lungs clear to auscultation Cardiovascular: Rate/Rhythm: regular rate and regular rhythm Gastrointestinal (Abdomen): normal bowel sounds, soft, nontender, no hepatosplenomegaly Psychiatric: Orientation: alert and oriented x 3 Affect: euthymic affect Results & Data Vital Signs (Past 12 Hours) Vital Signs Temp Pulse Pulse Resp BP Pulse Ox O2 Del Method 02/03/25 09:54 Room Air 02/03/25 08:47 102 H 02/03/25 07:19 98.1 F 100 H 18 117/74 97 Room Air 02/03/25 03:53 98.6 F 95 H 18 149/80 H 97 Room Air 02/02/25 23:39 99.7 F H 77 17 110/73 95 Room Air Laboratory Results Laboratory Results - last 48 hr 02/02/25 02/02/25 02/02/25 05:25 05:32 06:15 WBC 32.15 H* RBC 6.11 H Hgb 17.6 POC Hgb 18.7 H Hct 53.7 H POC Hct 55 H MCV 87.9 MCH 28.8 MCHC 32.8 RDW Std Deviation 43.8 RDW Coeff of Yanet 13.8 Plt Count 426 H MPV 10.9 Immature Gran % (Auto) 1.7 Neut % (Auto) 87.2 Lymph % (Auto) 4.5 Cooper % (Auto) 6.3 Eos % (Auto) 0.0 Baso % (Auto) 0.3 Neut # (Auto) 28.04 H Lymph # (Auto) 1.44 Cooper # (Auto) 2.01 H Eos # (Auto) 0.00 Baso # (Auto) 0.11 Immature Gran # (Auto) 0.55 H RBC Morphology Unremarkable Polychromasia Peripher Smr Path Cons ESR 63 H POC Sodium 142 Sodium 140 POC Potassium 4.6 Potassium 4.7 POC Chloride 105 Chloride 103 Carbon Dioxide 30 POC Total CO2 26 Anion Gap 7 POC Anion Gap 16.0 POC BUN 27 H BUN 24 H Creatinine 1.26 POC Creatinine 1.3 Est Cr Clr Drug Dosing 45.2 eGFR 57.66 BUN/Creatinine Ratio 19.0 Glucose 183 H POC Glucose (other) 185 H Lactate Calcium 10.9 H POC Ioniz Calcium Yesica 1.24 Magnesium Total Bilirubin 1.0 AST 18 ALT 16 Alkaline Phosphatase 65 Troponin I High Sens 10.5 C-Reactive Protein Total Protein 7.9 Albumin 4.2 Globulin 3.7 Albumin/Globulin Ratio 1.1 Lipase 12 Procalcitonin 0.52 H Urine Color Yellow Urine Appearance Turbid A Urine pH 7.5 Ur Specific [place] 1.020 Urine Protein 1+ H Urine Glucose (UA) Negative Urine Ketones Trace H Urine Blood Negative Urine Nitrite Negative Urine Bilirubin Negative Urine Urobilinogen Negative Ur Leukocyte Esterase 1+ H Urine WBC (Auto) 6-10 H Urine RBC (Auto) 11-20 H U Hyaline Cast (Auto) 0-2 U Epithel Cells (Auto) >20 H Urine Bacteria (Auto) None Seen Calcium Oxalate Crystal Present A Amorphous Sediment Present A Nasal Screen MRSA (PCR) 02/02/25 02/02/25 02/02/25 06:45 09:09 09:20 WBC RBC Hgb POC Hgb Hct POC Hct MCV MCH MCHC RDW Std Deviation RDW Coeff of Yanet Plt Count MPV Immature Gran % (Auto) Neut % (Auto) Lymph % (Auto) Cooper % (Auto) Eos % (Auto) Baso % (Auto) Neut # (Auto) Lymph # (Auto) Cooper # (Auto) Eos # (Auto) Baso # (Auto) Immature Gran # (Auto) RBC Morphology Polychromasia Peripher Smr Path Cons ESR POC Sodium Sodium POC Potassium Potassium POC Chloride Chloride Carbon Dioxide POC Total CO2 Anion Gap POC Anion Gap POC BUN BUN Creatinine POC Creatinine Est Cr Clr Drug Dosing eGFR BUN/Creatinine Ratio Glucose POC Glucose (other) Lactate 2.1 H* 1.7 Calcium POC Ioniz Calcium Yesica Magnesium 2.2 Total Bilirubin AST ALT Alkaline Phosphatase Troponin I High Sens 17.6 D C-Reactive Protein 12.04 H Total Protein Albumin Globulin Albumin/Globulin Ratio Lipase Procalcitonin Urine Color Urine Appearance Urine pH Ur Specific [place] Urine Protein Urine Glucose (UA) Urine Ketones Urine Blood Urine Nitrite Urine Bilirubin Urine Urobilinogen Ur Leukocyte Esterase Urine WBC (Auto) Urine RBC (Auto) U Hyaline Cast (Auto) U Epithel Cells (Auto) Urine Bacteria (Auto) Calcium Oxalate Crystal Amorphous Sediment Nasal Screen MRSA (PCR) 02/02/25 02/03/25 Unknown 06:48 WBC 26.68 H RBC 5.13 Hgb 14.4 D POC Hgb Hct 45.3 POC Hct MCV 88.3 MCH 28.1 MCHC 31.8 L RDW Std Deviation 45.3 RDW Coeff of Yanet 14.1 Plt Count 335 MPV 11.3 Immature Gran % (Auto) 1.2 Neut % (Auto) 85.5 Lymph % (Auto) 6.8 Cooper % (Auto) 6.2 Eos % (Auto) 0.0 Baso % (Auto) 0.3 Neut # (Auto) 22.82 H Lymph # (Auto) 1.81 Cooper # (Auto) 1.66 H Eos # (Auto) 0.01 Baso # (Auto) 0.07 Immature Gran # (Auto) 0.31 H RBC Morphology Polychromasia 1+ Peripher Smr Path Cons ESR POC Sodium Sodium 144 POC Potassium Potassium 4.2 POC Chloride Chloride 111 H Carbon Dioxide 25 POC Total CO2 Anion Gap 8 POC Anion Gap POC BUN BUN 22 Creatinine 1.02 POC Creatinine Est Cr Clr Drug Dosing 55.9 eGFR 74.30 BUN/Creatinine Ratio 21.6 H Glucose 126 H POC Glucose (other) Lactate Calcium 9.3 POC Ioniz Calcium Yesica Magnesium Total Bilirubin AST ALT Alkaline Phosphatase Troponin I High Sens C-Reactive Protein 17.77 H Total Protein Albumin Globulin Albumin/Globulin Ratio Lipase Procalcitonin 0.31 Urine Color Urine Appearance Urine pH Ur Specific [place] Urine Protein Urine Glucose (UA) Urine Ketones Urine Blood Urine Nitrite Urine Bilirubin Urine Urobilinogen Ur Leukocyte Esterase Urine WBC (Auto) Urine RBC (Auto) U Hyaline Cast (Auto) U Epithel Cells (Auto) Urine Bacteria (Auto) Calcium Oxalate Crystal Amorphous Sediment Nasal Screen MRSA (PCR) Negative Coding Level of Care Code 28399 INT INP/OBS CARE MIN Diagnoses Constipation K59.00 Mesenteric panniculitis K65.4
--- NOTE | 2025-02-03 14:17 | Hospitalist Progress Note ---
Date of Service February 03, 2025 Assessment & Plan (1) Sepsis: (2) Feculent vomit on examination: (3) Constipation: (4) Mesenteric panniculitis: Plan This is an 79-year-old male who presented on 02/02 for constipation and new onset feculent vomiting. #Sepsis Leukocytosis, tachycardic, minimally elevated lactate which normalized following admission Procalcitonin elevated at 0.52 DDx includes UTI less suspicious as no bacteria/nitrates and appeared co ntaminated; reactive/translocation with fecal impaction and? Stercoral colitis Clinically improving, antibiotics narrowed from cefepime/Flagyl to ceftriaxone/Flagyl Received sepsis guideline fluids on admission Will be monitored overnight for continued progression of his leukocytosis, reevaluation of possible ureteral obstruction, and blood culture results. If clinically stable and improved can progress to outpatient 5 to 7-day course of antibiotics. 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 Lymph nodes are small. Will have outpatient follow-up with hematology oncology, who will follow and repeat CBC as an outpatient when she is well and if does not return back to baseline can pursue potential myeloproliferative disease and possible biopsy at that time. #Constipation/fecal impaction/feculent emesis Last bowel movement 01/21, some chronic constipation Received soapsuds enema and disimpaction in the ER. Subsequently on MiraLAX, senna, lactulose, milk of mag and Fleet enema as needed. Patient is having continued bowel movements 02/03 Nausea/vomiting have resolved Outpatient follow-up of mesenteric panniculitis #Right renal hydronephrosis/ureteric stones/history of kidney stones CTA/P:Mild right renal hydronephrosis with 2 large right renal pelvic and proximal ureter stones. UA contaminated but not overtly infected appearing. No flank pain/CVA tenderness on exam. No SY Urology consulted for mild right hydronephrosis and sepsis criteria on admission. N.p.o. midnight/114/12 pending reassessment however not anticipated for urgent intervention at this time. No obstructive SY. If he becomes febrile overnight consult for urgent surgical intervention, if obstructive SY were to develop would need ureteral stent versus nephrostomy tube #Parkinsonisms/gait abnormalities - Patient recently started on trial of Sinemet for suspected Parkinson's, but this did not change his gait May resume Sinemet Disposition: Admit to PCU telemetry VTE PPx: Lovenox 40 mg SQ q24h Admission and Anticipated Discharge Date Admission Date: February 02, 2025 Subjective Doing well at bedside. Minimal abdominal discomfort. Does have to use the bathroom feels like he has to have another bowel movement. Denies fever chills or sweats. Denies chest pain or chest pressure Physical Exam Physical Exam: General: A&Ox3. NAD. Cooperative. HEENT: Atraumatic, normocephalic. Vision and hearing grossly intact Pulm: CTAB A&P. -wheezes, -rales, -rhonchi. Symmetrical chest rise. No increase in work of breathing. No respiratory distress. Cardiac: RRR, -mrg. Radial pulses intact and symmetrical. Abdominal: Minimally tender infraumbilical region. No rebound or guarding Results & Data Results & Data Vital Signs (Past 12 Hours) Vital Signs Temp Pulse Pulse Resp BP BP Pulse Ox 02/03/25 10:57 36.6 C 97 H 18 102/68 95 02/03/25 09:54 02/03/25 08:47 102 H 02/03/25 07:19 36.7 C 100 H 18 117/74 97 02/03/25 03:53 37.0 C 95 H 18 149/80 H 97 O2 Del Method 02/03/25 10:57 Room Air 02/03/25 09:54 Room Air 02/03/25 08:47 02/03/25 07:19 Room Air 02/03/25 03:53 Room Air PG Care Time/CCT Total # of Minutes Spent Total Time Spent with Patient: Total time spent is greater than 50% in coordination of care (as documented) at patient's floor/unit and/or counseling patient: Coding Level of Care Code 99381 SUB INP/OBS CARE 3/50MIN Diagnoses Sepsis A41.9 Feculent vomit on examination R11.13 Constipation K59.00 Mesenteric panniculitis K65.4
[2025-02-03] MEDS: cefTRIAXone SODIUM 2,000 MG/50 ML BAG IV SCH (15:50)
[2025-02-04 08:37] LABS: Basophils # (auto) 0.07 K/uL (0.00-0.20); Basophils % (auto) 0.4 %; Eosinophils # (auto) 0.27 K/uL (0.00-0.50); Eosinophils % (auto) 1.6 %; Hematocrit (blood only) 41.7 % (42.0-52.0); Hemoglobin 13.3 g/dl (14.0-18.0); Immature Granulocytes # (auto) 0.12 K/uL (0.01-0.20); Immature Granulocytes % (auto) 0.7 %; Lymphocytes # (auto) 1.97 K/uL (1.20-3.40); Lymphocytes % (auto) 11.9 %; Mean Corpuscular Hemoglobin 28.5 pg (25.0-34.0); Mean Corpuscular Hgb Conc 31.9 g/dL (32.0-36.0); Mean Corpuscular Volume 89.5 fL (80.0-100.0); Monocytes % (auto) 6.1 %; Neutrophils # (auto) 13.06 K/uL (1.40-6.50); Neutrophils % (auto) 79.3 %; Platelet Count 254 K/uL (130-400); RDW Standard Deviation 45.7 fL (36.4-46.3); Red Blood Count 4.66 M/uL (4.70-6.10); White Blood Count 16.49 K/ul (4.8-10.8)
[2025-02-04 08:55] LABS: BUN Creatinine Ratio 17.6 (10-20); C Reactive Protein 11.41 mg/dl (0-0.5); Calcium 9.1 mg/dl (8.6-10.3); Creatinine Clr Calc Pharmacy 52.8 ml/min; Potassium 4.5 mmol/L (3.5-5.1)
--- NOTE | 2025-02-04 09:51 | Discharge Summary ---
Discharge Summary Date of Service February 05, 2025 Principal Dx & Hospital Course #1 = Principal Diagnosis (1) Sepsis: (2) Feculent vomit on examination: (3) Constipation: (4) Mesenteric panniculitis: Plan This is an 79-year-old male who presented on 02/02 for constipation and new onset feculent vomiting. To do as outpatient: Complete empiric course of cefdinir/Flagyl Continue bowel regimen Outpatient follow-up with GI for this technique colitis and severe constipation with suspected colitis and possible translocation during admission, blood cultures were negative Outpatient follow-up with urology for nephro/utero lithiasis without SY Repeat CBC/BMP within 3-7 days. Outpatient hematology follow-up to exclude underlying myeloproliferative disease, although suspect all acute and reactive given preceding normal counts Continue Flomax, follow-up with urology for LUTS. PVR periodically to ensure no large volume retention. No obstructive SY during admission #Sepsis Leukocytosis, tachycardic, minimally elevated lactate which normalized following admission. Clinically patient looked and felt well with dramatic improvement following fecal disimpaction and fluids. Procalcitonin elevated at 0.52. Blood cultures remain negative at 48 hours. Denies respiratory symptoms, no hypoxia on room air. Chest x-ray with some diminished expansion but no overt evidence of pneumonia Suspect most likely source was stercoral colitis/GI with significant fecal load and surrounding inflammation, DDx includes UTI complicated by renal stones. UA was contaminated versus infected appearing. 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 Lymph nodes are small. Will have outpatient follow-up with hematology oncology, who will follow and repeat CBC as an outpatient when she is well and if does not return back to baseline can pursue potential myeloproliferative disease and possible biopsy at that time. GI was consulted, agree with outpatient follow-up and no ongoing inpatient needs at this time #Constipation/fecal impaction/feculent emesis Last bowel movement 01/21, some chronic constipation Received soapsuds enema and disimpaction in the ER. Subsequently on MiraLAX, senna, lactulose, milk of mag and Fleet enema as needed. Nausea/vomiting have resolved Outpatient follow-up of mesenteric panniculitis Continue MiraLAX daily, senna as needed second line, lactulose/milk of mag/Fleet enema as needed #Right renal hydronephrosis/ureteric stones/history of kidney stones CTA/P:Mild right renal hydronephrosis with 2 large right renal pelvic and proximal ureter stones. UA contaminated but not overtly infected appearing. No flank pain/CVA tenderness on exam. No SY Urology consulted for mild right hydronephrosis and sepsis criteria on admission. UA contaminated versus infected appearing. Culture pending. Reviewed with urology 02/04, no stenting currently indicated and recommend outpatient follow-up. Patient discharged on empiric antibiotics #Parkinsonisms/gait abnormalities - Patient recently started on trial of Sinemet for suspected Parkinson's, but this did not change his gait Continue Sinemet BPH/LUTS Some urinary retention with postvoid's of around 400 cc. No obstructive injury. Positive for straight cath postvoid however some difficulty passing past the prostate. In absence of SY and large volume retention Rm was deferred, but patient was started on Flomax. Continue follow-up with urology Admission HPI Per Admitting Provider Royal is a pleasant 79-year-old male with PMH of ischemic CVA, HLD, BPH, and H TN. He presented on 02/02 from [facility] for dark-colored emesis that smelled like stool, which began overnight the night prior. Patient has been at [facility] for approximately 10 days for ambulatory dysfunction. He has been taking laxatives, which has not been working; last normal bowel movement reported to be on 01/21. Patient believes he is in the hospital as he has been unable to defecate. Vomiting x 1 last night, however he reports that he had chocolate ice cream, and thinks this might of caused it. He is having minimal abdominal pain at this time; he does report 4/10 intermittent lower abdominal pain that he characterizes as sharp and dull. No flank pain or lower back pain. He has not been taking pain medicine for this. He does have a history of kidney stones, but does not feel like he currently has one. Patient believes he took his regular morning medicine today, but is not sure. Remote history of hospital mission at [facility] from 01/20 to 01/23 for generalized weakness, dehydration, and difficulty walking. Patient was sent to [facility] thereafter. Patient denies smoking or tobacco use. No recent falls, trauma, or injuries to the abdomen pelvis. No ambulatory assist devices at baseline. Patient is tachycardic at 108 bpm at time admission; vitals otherwise stable. NSS 2000 mL IV Cefepime 2000 mg IV Zofran 4 mg IV ROS: Patient endorses vomiting x 1, abdominal pain (attributes to constipation medications), constipation, dry cough, Patient denies fever, chills, nightsweats, dizziness, lightheadedness, headache, chest pain, chest palpitations, SOB, hemoptysis, pleuritic CP, burning with urination, blood in the urine/stool, back pain, flank pain, saddle anesthesia, or numbness/tingling in the legs. Admission Exam Per Admitting Provider General: A&Ox3. NAD. Cooperative. HEENT: Atraumatic, normocephalic. Pulm: CTAB A&P. -wheezes, -rales, -rhonchi. Symmetrical chest rise. No increased work of breathing. No respiratory distress. Cardiac: RRR, -mrg. Radial pulses intact and symmetrical. Abdominal: Nontender, nondistended, soft. BS present. Discharge Exam General: A&Ox3. NAD. Cooperative. HEENT: Atraumatic, normocephalic. Vision and hearing grossly intact Pulm: CTAB A&P. -wheezes, -rales, -rhonchi. Symmetrical chest rise. No increase in work of breathing. No respiratory distress. Cardiac: RRR, -mrg. Radial pulses intact and symmetrical. Abdominal: Minimally tender infraumbilical region. No rebound or guarding Discharge Plan Discharge Items Patient Disposition: Transfer Inpatient Rehab Fac Reason For Visit: MESENTERIC,PANNICULITIS, OBSTRUCTIVE STONE Discharge Diagnosis: Sepsis, suspect stercoral colitis versus UTI Panniculitis Utero lithiasis without obstructive SY Activity: Resume your previous activity Non-emergency contact: Primary Care Provider Call non-emergency contact if: you have any medication questions, your symptoms worsen and your pain is not controlled Follow-up/Referrals: Carlos A Casper MD [Physician] - Bhavana Mcelroy MD [Physician] - Lambert Adkins MD [Physician] - PCP,NO [Primary Care Provider] - Diet: Heart Healthy Addtl Attending Provider Instructions: You were seen in the hospital for evaluation of possible bowel obstruction. A CT of your abdomen did not show evidence of bowel obstruction but you did have a significant stool burden in your rectum/sigmoid colon. You underwent manual disimpaction, enema treatment, and were treated with laxatives and rapidly improved. Given discharged to continue a laxative regimen including MiraLAX, additional laxatives/softeners/enemas if needed. Your CT scan did show evidence of kidney stones some of which had moved into the ureter. You did not have an obstructive kidney injury during admission. Urology was consulted and reviewed your case during admission. Stenting/intervention was not recommended at time of assessment. Outpatient follow-up was recommended. Your urinalysis was contaminated versus infected appearing, a culture was pending at time of discharge. You were treated empirically with antibiotics. Please continue to take cefdinir 300 mg by mouth twice daily, and Flagyl 500 mg 3 times daily for 5 additional days. NuLev reassessment by your providers at [facility]. You had a disproportionate rise of your white blood cell count on admission, previously your white blood cell count been normal. Due to underlying mesenteric panniculitis which is typically a nonmalignant chronic inflammatory process, but with some lymphadenopathy noted, your case was discussed with GI and hematology. No biopsy was recommended at this time. A peripheral smear showed a high number of white blood cells but without abnormal or toxic findings. It was recommended you follow-up as an outpatient with both GI and hematology/oncology If you develop any new or worsening symptoms including fever, chills, sweats, chest pain, chest pressure, difficulty breathing, uncontrolled nausea/vomiting, rash, wheezing, passing out or nearly passing out, bleeding, black/bloody bowel movements, or other new or concerning symptoms please call your primary care physician, or call 911 for re-evaluation in the emergency department if you are very concerned. Pending Studies at Discharge: Yes (UC) Stand-Alone Forms: [employer] Skilled Items Patient informed of condition?: No DNR: No Discharge Level of Care: Acute rehab Communicable Disease: No Discharge Prognosis: Stable Lines: None Urinary Catheter: No Medications and DC Order Prescriptions: New cefdinir 300 mg capsule 300 mg PO BID 5 Days Qty: 10 0RF metronidazole 500 mg tablet 500 mg PO BID 5 Days Qty: 10 0RF tamsulosin [Flomax] 0.4 mg capsule 0.4 mg PO HS Qty: 30 0RF Continued acetaminophen 325 mg Tablet 650 mg PO Q4H PRN (Reason: Pain) ondansetron HCl 4 mg Tablet 4 mg PO Q6H PRN (Reason: n/v) sennosides-docusate sodium [Senokot-S] 8.6-50 mg Tablet 1 tab-cap PO .@LUNCH PRN (Reason: Constipation) melatonin 3 mg Tablet 3 mg PO HS PRN (Reason: Insomnia) aspirin 81 mg Tablet,Delayed Release (Dr/Ec) 81 mg PO DAILY zinc oxide 20 % Ointment 1 applic TOPICAL BID acetaminophen 500 mg Tablet 500 mg PO Q4H PRN (Reason: temp equal to or >100.5) cyanocobalamin (vitamin B-12) 500 mcg Tablet 500 mcg PO DAILY bisacodyl 10 mg Suppository 10 mg IA DAILY PRN (Reason: Constipation) carbidopa-levodopa 10-100 mg Tablet 1 tab PO TID docusate sodium 100 mg Capsule 100 mg PO BID docusate sodium 100 mg Capsule 100 mg PO Q12 PRN (Reason: Constipation) folic acid 1 mg Tablet 1 mg PO DAILY calcium carbonate 500 mg calcium (1,250 mg) Tablet,Chewable 500 mg PO Q8H PRN (Reason: Indigestion) glucagon 1 mg Recon Soln 1 mg IM DIRECTED PRN (Reason: Hypoglycemia) polyethylene glycol 3350 [Miralax] 17 gram/dose Powder 17 g PO DAILY polyethylene glycol 3350 [Miralax] 17 gram/dose Powder 17 g PO .@LUNCH PRN (Reason: Constipation) enoxaparin 40 mg/0.4 mL Syringe 40 mg SUBCUT DAILY lactulose 10 gram/15 mL Solution 15 ml PO TID Dextrose 50% 25 g IM DIRECTED PRN (Reason: Hypoglycemia) Dextrose 50% 12.5 mg IV DIRECTED PRN (Reason: Hypoglycemia) Fleet Enema 133 ml IA DAILY PRN (Reason: Constipation) Discharge Orders: Discharge Order (Routine); Ordered 02/05/25 Ordered By: Ze Monroe Admission Data Admit Date/Time: 02/02/25 10:37 Attending Provider: Ze Monroe Admit Provider: Ze Monroe Primary Care Provider: PCP,NO Other Providers: Ze Monroe; Carlos A Casper; Lambert Adkins I Other Interventions: Discharge Summary Assessment (RN) Last Done: 02/05/25 14:02 Hospital Stay Data Consultations 02/02/25 07:43 ED Decision to Admit Stat 02/02/25 10:32 Consult Urology Routine 02/03/25 07:44 Consult Gastroenterology Routine Diagnostic Imagining Performed 02/02/25 05:23 CT Abd and Pelvis [CT abd pelvis IV con only] Stat Discharge Instructions Given to Patient (Per Discharging Provider) You were seen in the hospital for evaluation of possible bowel obstruction. A CT of your abdomen did not show evidence of bowel obstruction but you did have a significant stool burden in your rectum/sigmoid colon. You underwent manual disimpaction, enema treatment, and were treated with laxatives and rapidly impro russ. Given discharged to continue a laxative regimen including MiraLAX, additional laxatives/softeners/enemas if needed. Your CT scan did show evidence of kidney stones some of which had moved into the ureter. You did not have an obstructive kidney injury during admission. Urology was consulted and reviewed your case during admission. Stenting/intervention was not recommended at time of assessment. Outpatient follow-up was recommended. Your urinalysis was contaminated versus infected appearing, a culture was pending at time of discharge. You were treated empirically with antibiotics. Please continue to take cefdinir 300 mg by mouth twice daily, and Flagyl 500 mg 3 times daily for 5 additional days. NuLev reassessment by your providers at [facility]. You had a disproportionate rise of your white blood cell count on admission, previously your white blood cell count been normal. Due to underlying mesenteric panniculitis which is typically a nonmalignant chronic inflammatory process, but with some lymphadenopathy noted, your case was discussed with GI and hematology. No biopsy was recommended at this time. A peripheral smear showed a high number of white blood cells but without abnormal or toxic findings. It was recommended you follow-up as an outpatient with both GI and hematology/oncology If you develop any new or worsening symptoms including fever, chills, sweats, chest pain, chest pressure, difficulty breathing, uncontrolled nausea/vomiting, rash, wheezing, passing out or nearly passing out, bleeding, black/bloody bowel movements, or other new or concerning symptoms please call your primary care physician, or call 911 for re-evaluation in the emergency department if you are very concerned. Total Time Total Time Spent Total Time Spent (In Minutes): Time spend day of discharge 35 minutes including direct patient care, documentation, review of labs and images, and coordination of care. Coding Level of Care Code 19494 INP/OBS DISCH >30 MIN Diagnoses Sepsis A41.9 Feculent vomit on examination R11.13 Constipation K59.00 Mesenteric panniculitis K65.4
--- NOTE | 2025-02-04 10:30 | Urology Progress Note ---
Date of Service February 04, 2025 Assessment & Plan (1) Right ureteral calculus: Plan Obstructing right ureteral calculus with a very large calculus sitting just at the UPJ above this obstructing stone He has some renal atrophy implying that this obstruction has likely been present for a long time. He currently is doing well He can be discharged to his home nursing facility today He should follow-up as an outpatient to discuss definitive surgery as there likely is renal parenchyma to be preserved if he intervenes in a timely fashion Admission and Anticipated Discharge Date Admission Date: February 02, 2025 Subjective Subjectively doing okay today He denies any flank pain consistent with a kidney stone He does not wish to pursue emergent surgery right now he seems to be recovering in general from his other acute issues Physical Exam Constitutional: well developed and well nourished Respiratory: no respiratory distress Cardiovascular: Extremities: no pedal edema Gastrointestinal (Abdomen): Inspection/Auscultation: abdomen normal to inspection Results & Data Vital Signs (Past 12 Hours) Vital Signs Temp Pulse Pulse Resp BP BP Pulse Ox 02/04/25 07:51 36.6 C 80 16 146/78 H 98 02/04/25 07:01 76 02/04/25 02:42 36.4 C L 82 18 131/80 97 02/04/25 02:02 85 02/03/25 22:42 36.7 C 86 16 108/67 97 O2 Del Method 02/04/25 07:51 Room Air 02/04/25 07:01 02/04/25 02:42 Room Air 02/04/25 02:02 02/03/25 22:42 Room Air PG Care Time/CCT Total # of Minutes Spent Total Time Spent with Patient: Total time spent is greater than 50% in coordination of care (as documented) at patient's floor/unit and/or counseling patient: Coding Level of Care Code 79851 SUB INP/OBS CARE 11/19MIN Diagnoses Right ureteral calculus N20.1
--- NOTE | 2025-02-04 12:30 | Electrocardiogram Report ---
Test Reason : Blood Pressure : */* mmHG Vent. Rate : 93 BPM Atrial Rate : 93 BPM P-R Int : 144 ms QRS Dur : 114 ms QT Int : 376 ms P-R-T Axes : 32 253 26 degrees QTcB Int : 467 ms Sinus rhythm with occasional Premature ventricular complexes Incomplete right bundle branch block Abnormal ECG When compared with ECG of 02-Feb-2025 05:12, Premature ventricular complexes are now Present Borderline criteria for Lateral infarct are no longer Present Confirmed by Freddy Parmar ([id number]) on 02/04/2025 12:29:42 PM Referred By: REFERRED SELF Confirmed By: Freddy Parmar
--- NOTE | 2025-02-04 18:21 | Hospitalist Progress Note ---
Date of Service February 04, 2025 Assessment & Plan (1) Sepsis: (2) Feculent vomit on examination: (3) Constipation: (4) Mesenteric panniculitis: Plan This is an 79-year-old male who presented on 02/02 for constipation and new onset feculent vomiting. Was anticipated for transfer back to [facility] 02/04 however per discussion with case management/liaison despite being within 3 days patient will require a new authorization. I did provide direct phone number for contact to review this. No contact or update by around 6:30 PM, discharge canceled and pending insurance authorization for disposition. #Sepsis Leukocytosis, tachycardic, minimally elevated lactate which normalized following admission. Clinically patient looked and felt well with dramatic improvement following fecal disimpaction and fluids. Procalcitonin elevated at 0.52. Blood cultures remain negative at 48 hours. Denies respiratory symptoms, no hypoxia on room air. Chest x-ray with some diminished expansion but no overt evidence of pneumonia Suspect most likely source was stercoral colitis/GI with significant fecal load and surrounding inflammation, DDx includes UTI complicated by renal stones. UA was contaminated versus infected appearing. 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 Lymph nodes are small. Will have outpatient follow-up with hematology oncology, who will follow and repeat CBC as an outpatient when she is well and if does not return back to baseline can pursue potential myeloproliferative disease and possible biopsy at that time. GI was consulted, agree with outpatient follow-up and no ongoing inpatient needs at this time #Constipation/fecal impaction/feculent emesis Last bowel movement 01/21, some chronic constipation Received soapsuds enema and disimpaction in the ER. Subsequently on MiraLAX, senna, lactulose, milk of mag and Fleet enema as needed. Nausea/vomiting have resolved Outpatient follow-up of mesenteric panniculitis Continue MiraLAX daily, senna as needed second line, lactulose/milk of mag/Fleet enema as needed #Right renal hydronephrosis/ureteric stones/history of kidney stones CTA/P:Mild right renal hydronephrosis with 2 large right renal pelvic and proximal ureter stones. UA contaminated but not overtly infected appearing. No flank pain/CVA tenderness on exam. No SY Urology consulted for mild right hydronephrosis and sepsis criteria on admission. UA contaminated versus infected appearing. Culture pending. Reviewed with urology 02/04, no stenting currently indicated and recommend outpatient follow-up. Patient discharged on empiric antibiotics with final culture speciation's pending. #Parkinsonisms/gait abnormalities - Patient recently started on trial of Sinemet for suspected Parkinson's, but this did not change his gait Continue Sinemet Admission and Anticipated Discharge Date Admission Date: February 02, 2025 Subjective Doing well at the bedside. Has had bowel movements today. Abdominal pain is very minimally present but he feels that this is greatly improved and improves with his bowel movements. No fever chills or sweats. No chest pain or chest pressure. No concerns at bedside. He feels ready to return back to [facility]. Physical Exam Physical Exam: General: A&Ox3. NAD. Cooperative. HEENT: Atraumatic, normocephalic. Vision and hearing grossly intact Pulm: CTAB A&P. -wheezes, -rales, -rhonchi. Symmetrical chest rise. No increase in work of breathing. No respiratory distress. Cardiac: RRR, -mrg. Radial pulses intact and symmetrical. Abdominal: Minimally tender infraumbilical region. No rebound or guarding Results & Data Results & Data Vital Signs (Past 12 Hours) Vital Signs Temp Pulse Pulse Resp BP Pulse Ox O2 Del Method 02/04/25 15:21 36.6 C 65 16 109/68 95 Room Air 02/04/25 14:09 89 02/04/25 11:02 37 C 85 18 99/63 L 95 Room Air 02/04/25 07:51 36.6 C 80 16 146/78 H 98 Room Air 02/04/25 07:01 76 PG Care Time/CCT Total # of Minutes Spent Total Time Spent with Patient: Total time spent is greater than 50% in coordination of care (as documented) at patient's floor/unit and/or counseling patient: Coding Level of Care Code 72666 SUB INP/OBS CARE 3/50MIN Diagnoses Sepsis A41.9 Feculent vomit on examination R11.13 Constipation K59.00 Mesenteric panniculitis K65.4
[2025-02-04] MEDS: TAMSULOSIN HCL 0.4 MG CAP PO ONE (19:47)
[2025-02-05 06:32] LABS: Basophils # (auto) 0.05 K/uL (0.00-0.20); Basophils % (auto) 0.5 %; Eosinophils # (auto) 0.34 K/uL (0.00-0.50); Eosinophils % (auto) 3.5 %; Hematocrit (blood only) 35.8 % (42.0-52.0); Hemoglobin 11.4 g/dl (14.0-18.0); Immature Granulocytes # (auto) 0.09 K/uL (0.01-0.20); Immature Granulocytes % (auto) 0.9 %; Lymphocytes # (auto) 1.83 K/uL (1.20-3.40); Lymphocytes % (auto) 18.9 %; Mean Corpuscular Hemoglobin 28.4 pg (25.0-34.0); Mean Corpuscular Hgb Conc 31.8 g/dL (32.0-36.0); Mean Corpuscular Volume 89.1 fL (80.0-100.0); Mean Platelet Volume 10.9 fL (9.4-12.4); Monocytes # (auto) 0.65 K/uL (0.11-0.59); Monocytes % (auto) 6.7 %; Neutrophils # (auto) 6.72 K/uL (1.40-6.50); Neutrophils % (auto) 69.5 %; Platelet Count 252 K/uL (130-400); RDW Coefficient of Variation 13.7 % (11.5-14.5); RDW Standard Deviation 44.7 fL (36.4-46.3); Red Blood Count 4.02 M/uL (4.70-6.10); White Blood Count 9.68 K/ul (4.8-10.8)
[2025-02-05 06:54] LABS: BUN Creatinine Ratio 17.5 (10-20); Calcium 8.7 mg/dl (8.6-10.3); Creatinine Clr Calc Pharmacy 55.3 ml/min; Potassium 4.1 mmol/L (3.5-5.1)
--- NOTE | 2025-02-05 09:47 | Urology Progress Note ---
Date of Service February 05, 2025 Assessment & Plan (1) Right ureteral calculus: Plan Obstructing right ureteral calculus with a very large calculus sitting just at the UPJ above this obstructing stone He has some renal atrophy implying that this obstruction has likely been present for a long time. Subjectively much better than he has been in the last few days He has been able to urinate spontaneously He is hoping to return to his long-term later today Admission and Anticipated Discharge Date Admission Date: February 02, 2025 Subjective I was called last night about possible urinary retention when he had random bladder scans measuring in the 470s He reports that he has been able to void spontaneously and does not feel that he is having any current issues His creatinine remained stable at 1.0 Results & Data Vital Signs (Past 12 Hours) Vital Signs Temp Pulse Pulse Resp BP Pulse Ox O2 Del Method 02/05/25 07:51 36.7 C 78 20 110/67 97 Room Air 02/05/25 07:43 77 02/05/25 03:12 36.7 C 75 16 123/74 94 Room Air 02/04/25 23:49 36.5 C 79 16 150/77 H 97 Room Air 02/04/25 22:09 77 PG Care Time/CCT Total # of Minutes Spent Total Time Spent with Patient: Total time spent is greater than 50% in coordination of care (as documented) at patient's floor/unit and/or counseling patient: Coding Level of Care Code 26026 SUB INP/OBS CARE 11/19MIN Diagnoses Right ureteral calculus N20.1
[2025-02-05 11:10] VITALS: PULSE 81; RESP 17; TEMP 97.3; O2SAT 96
[2025-02-05 13:32] VITALS: BP 131/80
== END 2025-02-05 14:02 | DRG 872 ==
LOC: ED 05:08 → 2S 10:37